=== PATIENT | male | born 1945 | race African-American/Black ===

== ENCOUNTER 2016-12-26 07:06 | Inpatient (IN) | payer OTHER ==
[2016-12-26 07:15] VITALS: BMI 18.0
[2016-12-26] MEDS ORDERED: morphine CARPU-JECT 4 MG/1 ML DISP.SYRIN IVPUSH ONE (07:44)
[2016-12-26] MEDS ORDERED: SODIUM CHLORIDE 1,000 ML IV STA (07:44)
--- NOTE | 2016-12-26 08:10 | PDOC ---
Attending Attestation - Resident Resident Name: ShaferRenu - ED Attending Attestation I have performed the following: I have examined & evaluated the patient, The case was reviewed & discussed with the resident, I agree w/resident's findings & plan, Exceptions are as noted - HPI HPI: 12/26/16 08:03 This is a 71 yo M with a history of Heroin abuse prior lower extremity ulcers Pt presents to the ER with a complaint of severe lower extremity pain Pt had lower extremity ulcers, seen at an outside hospital where he was reportedly assessed and treated with anitbiotics Pt presents to the ER due to worsening pain Pt has lower extremity swelling No fevers While en route here to the ER, he syncopized - Physicial Exam PE: 12/26/16 08:10 Lower extremity edema Lower extremity pain Several ulcerations noted - Medical Decision Making 12/26/16 08:10 Will do: Labs Duplex Head CT 12/26/16 12:59 12/26/16 12:59 Laboratory Tests 12/26/16 12/26/16 09:10 09:10 WBC 3.6 L Hgb 9.8 L Hct 29.9 L Plt Count 138 D Sodium 140 Potassium 3.1 L Chloride 100 Carbon Dioxide 33 H Anion Gap 7 L BUN 18 Creatinine 1.0 Random Glucose 87 D Will plan to admit Heart Score/ECG Review #1 ECG reviewed & interpreted by me at: 13:01 12/26/16 13:01 Twelve-lead EKG was performed and reviewed by me. There is normal sinus rhythm with a normal rate of 68 bpm. The axis is normal. The intervals are abnormal - pr:270ms, QRS:98ms, QTc:425ms. There are no ST or T wave abnormalities.
--- NOTE | 2016-12-26 08:14 | PDOC ---
History of Present Illness - General Chief Complaint: Pain, Acute Stated Complaint: pain Time Seen by Provider: 12/26/16 07:14 History Source: Patient Exam Limitations: No Limitations - History of Present Illness Initial Comments: 12/26/16 07:50 This is a 71 yo male with h/o homelessness and recurrent foot infections who presents c/o syncope today at about 6:30am in the setting of left foot infection for the past two days. He recalls that he was on the bus en route to the ED to be seen for the foot infection when he stepped off the bus, had worsened shooting pain when he stepped on the left foot, and passed out. He had no preceding symptoms (no chest pain, palpitations, or dizziness), and states that he fainted d/t the pain. He cannot recall exactly what happened, but he denies hitting his head or neck, and now denies any head/neck pain, vision troubles, new numbness or tingling, or focal weakness. Regarding the left foot pain, he notes worsening pain, redness, swelling, and warmth from the inside of the ankle radiating up to the mid-calf for the past two days. He also notes skin tears/ulcers to the inside of the left ankle. He recalls that these symptoms are the same as his prior foot infections, the last of which was on the same side two weeks ago and was treated with antibiotics from an outside ED (as outpatient). He notes SOB for the past couple of days ("due to the pain") but denies any fever, chills, nausea, vomiting, rashes, chest pain, palpitations , headache, vision changes, or other recent symptoms. Past History - Past Medical History Allergies/Adverse Reactions: Allergies Allergy/AdvReac Type Severity Reaction Status Date / Time tomato [Tomato] Allergy Unknown Rash Verified 12/26/16 07:09 No Known Drug Allergies Allergy Verified 12/26/16 07:09 Home Medications: Ambulatory Orders NK [No Known Home Medication] 12/26/16 Anemia: No Asthma: No Cancer: No Cardiac Disorders: No CVA: No COPD: No CHF: No Dementia: No Diabetes: No GI Disorders: No Disorders: No HTN: No Hypercholesterolemia: No Kidney Stones: No Liver Disease: No Suicide Attempt (Hx): No Seizures: No Thyroid Disease: No - Surgical History Abdominal Surgery: No Appendectomy: No Cardiac Surgery: No Cholecystectomy: No Lung Surgery: No Neurologic Surgery: No Orthopedic Surgery: No - Reproductive History Testicular Surgery: No - Psycho/Social/Smoking Cessation Hx Anxiety: No Suicidal Ideation: No Smoking History: Unknown if ever smoked Have you smoked in the past 12 months: Yes Number of Cigarettes Smoked Daily: 10 Cigars Per Day: 0 'Breaking Loose' booklet given: 02/11/16 Hx Alcohol Use: No Drug/Substance Use Hx: Yes Substance Use Type: Heroin Hx Substance Use Treatment: Yes Review of Systems - Review of Systems Able to Perform ROS?: Yes Is the patient limited Polish proficient: Yes Constitutional: Yes: Chills. No: Fever, Unexplained wgt Loss HEENTM: No: Nose Congestion, Throat Pain Respiratory: No: Cough, Shortness of Breath Cardiac (ROS): Yes: Syncope. No: Chest Pain, Palpitations ABD/GI: No: Constipated, Diarrhea, Nausea, Vomiting : No: Burning, Dysuria Musculoskeletal: Yes: Other (left leg pain, left foot pain). No: Back Pain, Neck Pain Integumentary: Yes: Erythema, Lesions. No: Bruising Neurological: No: Headache, Numbness, Tingling, Weakness, Dizziness Endocrine: No: Unexplained Weight Gain, Unexplained Weight Loss *Physical Exam - Vital Signs Last Vital Signs Temp Pulse Resp BP Pulse Ox 98.1 F 64 18 131/75 100 12/26/16 07:10 12/26/16 07:10 12/26/16 07:10 12/26/16 07:10 12/26/16 07:10 - Physical Exam General Appearance: Yes: Disheveled, Moderate Distress, Other (older male who is alert and answering questions appropriately but who intermittently moans in pain noting that his left foot and leg are painful). No: Apparent Distress HEENT: positive: EOMI, Normal Voice, Hearing Grossly Normal, Other (poor dentition). negative: Scleral Icterus (R), Scleral Icterus (L), Nasal Congestion Neck: positive: Trachea midline, Supple. negative: Tender, Rigid Respiratory/Chest: positive: Lungs Clear, Normal Breath Sounds. negative: Respiratory Distress, Crackles, Rhonchi, Stridor, Wheezing Cardiovascular: positive: Regular Rhythm, Regular Rate. negative: Murmur Gastrointestinal/Abdominal: positive: Normal Bowel Sounds, Soft. negative: Tender, Organomegaly, Pulsatile Mass, Guarding Musculoskeletal: positive: Decreased Range of Motion (to left ankle secondary to swelling), Other (charcot foot deformity bilaterally). negative: Vertebral Tenderness Extremity: positive: Normal Capillary Refill, Normal Inspection, Normal Range of Motion. negative: Tender, Cyanosis Integumentary: positive: Warm, Erythema (extending from base of toes to mid- calf circumferentially), Swelling (left pedal edema extending to distal leg), Other (multiple ulcerations to medial ankle without active drainage, multiple old scabbed areas to left anterior leg, no induration or fluctuance noted to LLE ). negative: Bruising Neurologic: positive: certified medical technician assistant II-XII NML intact, Fully Oriented, Alert, Normal Mood/ Affect, Normal Response, Motor Strength 5/5 Procedures - Additional Procedures Additional Procedures: other (US guided EJ line placement, left EJ, 18G catheter placed into left EJ with initial non-pulsatile dark red return of blood but subsequent inability to draw blood into syringe. Able to flush 10 cc into line without e/o infiltration, subsequently able to flush an additional 10 cc without e/o infiltration. However still unable to draw blood, d/t uncertainty of successful cannulation will ask IR if they might have time to place a line, as another option may consider CVC placement.) Heart Score/ECG Review #1 ECG reviewed & interpreted by me at: 08:00 NSR rate of 68 with 1st degree AV block, otherwise nothing acute ED Treatment Course - LABORATORY CBC & Chemistry Diagram: 12/26/16 09:10 12/26/16 09:10 - RADIOLOGY Radiology Studies Ordered: Category Date Time Status CHEST X-RAY PORTABLE* [RAD] Stat Radiology 12/26/16 07:44 Ordered DUPLEX VASCUL US-2LEGS [US] Stat Ultrasound 12/26/16 07:44 Ordered Chest X-Ray Result: Other (No acute cardiopulmonary processes) Medical Decision Making - Medical Decision Making 71 yo male with recurrent LE cellulitis, with worsening LLE infection x2 days and now an episode of syncope this AM. Pt denies preceding symptoms, denies hitting head or injuring neck, but cannot recall the actual event as he did lose consciousness. Will order CT head (this is indicated according to [place] CT-Head rule based on assumed CHI and the patient's age). Defering CT C-spine (Pt with complete absence of neck pain, no recall of mechanism for C-spine trauma, no distracting injury from fall). Noted that the patient does have pain from his LLE cellulitis, but we are not considering this a "distracting injury" from the fall. Most likely this is vasovagal syncope associated with pain from the LLE infection. Also considered on the ddx are sepsis, CHF, anemia, EKG does not suggest signs of ischemia, CXR is unremarkable. Notable that the [place] Syncope Rule scoring places this Pt at high risk for serious outcome based on his SOB and Hct<30. 12/26/16 11:22 The patient has been a difficult stick to place IV. We are opting out of IV fluids an any IV medications at this time. He has deferred CT scan of the head and states, "I'll get it another time." Doppler study BLE unremarkable, but the study did not include poplitial or any distal vessels in the LLE. Pt admitted to Med/Surg, PIV access achieved after multiple attempts. *DC/Admit/Observation/Transfer Diagnosis at time of Disposition: Cellulitis of foot, left - Discharge Dispostion Condition at time of disposition: Guarded Admit: Yes
[2016-12-26] MEDS ORDERED: OXYCODONE/APAP 5/325MG COMBO TABLET PO ONE (08:35)
[2016-12-26] MEDS ORDERED: OXYCODONE/APAP 5/325MG COMBO TABLET ONE (08:37)
[2016-12-26 09:21] LABS: BASOPHIL 0.7 % (0-2.0); EOSINOPHIL 2.4 % (0-4.5); MCH 31.7 pg (25.7-33.7); MCHC 32.9 g/dl (32.0-35.9); MEAN CELL VOLUME 96.4 fl (80-96); MEAN PLT VOLUME 8.2 fl (7.5-11.1); NEUTROPHILS 61.3 % (42.8-82.8); PLATELET COUNT 138 K/MM3 (134-434); RDW 13.3 % (11.9-15.9); WHITE BLOOD COUNT 3.6 K/mm3 (4.0-10.0)
[2016-12-26 09:44] LABS: ALBUMIN 3.1 g/dl (3.4-5.0); ALK PHOS 69 U/L (45-117); ANION GAP 7 (8-16); BILIRUBIN,TOTAL 0.8 mg/dL (0.2-1.0); CO2 33 mmol/L (21-32); GLUCOSE,RANDOM 87 mg/dL (74-106); SGOT/AST 38 U/L (15-37); SGPT/ALT 37 U/L (12-78); TOT PROT 6.9 g/dl (6.4-8.2)
--- NOTE | 2016-12-26 16:31 | EKG ---
Test Reason : Blood Pressure : / mmHG Vent. Rate : 068 BPM Atrial Rate : 068 BPM P-R Int : 270 ms QRS Dur : 098 ms QT Int : 400 ms P-R-T Axes : 055 001 052 degrees QTc Int : 425 ms POOR DATA QUALITY, INTERPRETATION MAY BE ADVERSELY AFFECTED SINUS RHYTHM WITH 1ST DEGREE A-V BLOCK INCOMPLETE RIGHT BUNDLE BRANCH BLOCK JUNCTIONAL ST DEPRESSION, PROBABLY NORMAL BORDERLINE ECG WHEN COMPARED WITH ECG OF 11-FEB-2016 23:44, PREMATURE VENTRICULAR COMPLEXES ARE NO LONGER PRESENT Confirmed by ARTURO SALCIDO MD ([id number]) on 12/26/2016 4:31:38 PM Referred By: Confirmed By:ARTURO SALCIDO MD
[2016-12-26] MEDS ORDERED: morphine CARPU-JECT 2 MG/1 ML DISP.SYRIN ONE (17:01)
[2016-12-26] MEDS ORDERED: morphine CARPU-JECT 4 MG/1 ML DISP.SYRIN ONE (17:01)
[2016-12-26 19:37] VITALS: PULSE 69
[2016-12-26] MEDS ORDERED: DEXTROSE 5%-0.45% SALINE 1,000 ML IV SCH (20:45)
[2016-12-26] MEDS: CEFAZOLIN (PRE-DOCKED) 50 ML IVPB SCH (22:29)
[2016-12-26] MEDS ORDERED: morphine CARPU-JECT 2 MG/1 ML DISP.SYRIN IVPUSH ONE (22:30)
[2016-12-27] MEDS: CEFAZOLIN (PRE-DOCKED) 50 ML IVPB SCH ×2 (01:56→10:10)
[2016-12-27] MEDS: morphine CARPU-JECT 2 MG/1 ML DISP.SYRIN IVPUSH PRN ×2 (06:17→11:49)
--- NOTE | 2016-12-27 11:20 | HP ---
Admitting History and Physical - Smoking History Smoking history: Current every day smoker Have you smoked in the past 12 months: Yes Aproximately how many cigarettes per day: 7 - Alcohol/Substance Use Hx Alcohol Use: No Home Medications - Allergies Allergies/Adverse Reactions: Allergies Allergy/AdvReac Type Severity Reaction Status Date / Time tomato [Tomato] Allergy Unknown Rash Verified 12/26/16 07:09 No Known Drug Allergies Allergy Verified 12/26/16 07:09 - Home Medications Home Medications: Ambulatory Orders NK [No Known Home Medication] 12/26/16 Family Disease History - Family Disease History Family Disease History: Heart Disease: Mother ( at age 52), CA: Brother, Respiratory: Grandparent (asthma Hx. Grandmother), Other: Father () Physical Examination Vital Signs: Vital Signs Temperature 97.7 F 12/26/16 18:41 Pulse Rate 69 12/26/16 18:41 Respiratory Rate 20 12/26/16 18:41 Blood Pressure 136/78 12/26/16 18:41 O2 Sat by Pulse Oximetry (%) 99 12/26/16 16:42
[2016-12-27 11:43] VITALS: BP 146/76; TEMP 98.9
--- NOTE | 2016-12-27 15:43 | CONSULT ---
Consult Consult Specialty:: infectious diseases Referred by:: Reason for Consultation:: cellulitits of the left leg - History of Present Illness Chief Complaint: pain and swelling of the left leg History of Present Illness: 71 yo male with h/o homelessness and recurrent foot infections who presents c/o syncope today at about 6:30am in the setting of left foot infection for the past two days. According to the patient he does not care of himself and also he snorts heroin patient denies he does any iv drugs,occasionally smokes.. left foot pain, he notes worsening pain, redness, swelling, and warmth from the inside of the ankle radiating up to the mid-calf for the past two days. He also notes skin tears/ulcers to the inside of the left ankle. He recalls that these symptoms are the same as his prior foot infections, the last of which was on the same side two weeks ago and was treated with antibiotics patient currently has no specific complaints denies nausea ,vomiting.fever - History Source History Provided By: Patient, Medical Record Limitations to Obtaining History: Poor Historian - Alcohol/Substance Use Hx Alcohol Use: No - Smoking History Smoking history: Current every day smoker Have you smoked in the past 12 months: Yes Aproximately how many cigarettes per day: 7 Home Medications - Allergies Allergies/Adverse Reactions: Allergies Allergy/AdvReac Type Severity Reaction Status Date / Time tomato [Tomato] Allergy Unknown Rash Verified 12/26/16 07:09 No Known Drug Allergies Allergy Verified 12/26/16 07:09 - Home Medications Home Medications: Ambulatory Orders NK [No Known Home Medication] 12/26/16 Family Disease History - Family Disease History Family Disease History: Heart Disease: Mother ( at age 52), CA: Brother, Respiratory: Grandparent (asthma Hx. Grandmother), Other: Father () Review of Systems - Review of Systems Constitutional: reports: No Symptoms Eyes: reports: No Symptoms HENT: reports: No Symptoms Neck: reports: No Symptoms Cardiovascular: reports: No Symptoms Respiratory: reports: No Symptoms Gastrointestinal: reports: No Symptoms Genitourinary: reports: No Symptoms Musculoskeletal: reports: Muscle Pain, Other Integumentary: reports: Erythema, Wound Neurological: reports: No Symptoms Endocrine: reports: No Symptoms Hematology/Lymphatic: reports: No Symptoms Psychiatric: reports: No Symptoms Physical Exam Vital Signs: Vital Signs Temperature 98.9 F 12/27/16 10:00 Pulse Rate 69 12/27/16 10:00 Respiratory Rate 20 12/27/16 10:00 Blood Pressure 146/76 12/27/16 10:00 O2 Sat by Pulse Oximetry (%) 95 12/27/16 09:00 Constitutional: Yes: Mild Distress, Thin, Other Eyes: Yes: Conjunctiva Clear Cardiovascular: Yes: Regular Rate and Rhythm Respiratory: Yes: Regular, CTA Bilaterally Gastrointestinal: Yes: Normal Bowel Sounds, Soft Musculoskeletal: Yes: Other Extremities: Yes: Other Neurological: Yes: Alert, Oriented Psychiatric: Yes: Alert Imaging - Results Chest X-ray: Report Reviewed, Image Reviewed Assessment/Plan patient who is homeless and uses drugs coming to the hospital because of left leg cellulitis patient with multiple medical problems cellulitis of the l foot onchomycosis erythema of the foot unkept appearance drug abuse plan soak the feet podiatry for his toe nails will start vanco and zosyn elevation of the legs rest as per primary team
[2016-12-27] MEDS ORDERED: morphine CARPU-JECT 4 MG/1 ML DISP.SYRIN IVPUSH PRN (15:55)
[2016-12-27] MEDS ORDERED: VANCOMYCIN 1,250 MG in DEXTROSE 5%-WATER - 250 ML IVPB SCH (17:00)
== END 2016-12-27 16:28 | disposition left against medical advice (07) | DRG 603 ==
LOC: JER 07:06 → JERBED 13:13 → J5S 17:14
PROVIDERS: ADMIT Internal Medicine; ATTEND Internal Medicine
DX: L03.116 Cellulitis of left lower limb (principal); L97.829 Non-pressure chronic ulcer of other part of left lower leg with unspecified severity; F17.210 Nicotine dependence, cigarettes, uncomplicated; F11.10 Opioid abuse, uncomplicated; B35.1 Tinea unguium; Z59.0 Homelessness; R55 Syncope and collapse
CPT/HCPCS: 36415; 71010-TC; 80053; 83605; 85025; 87040; 87070; 87186; 87205; 93005; 93010; 93970-TC; 99285-25

== ENCOUNTER 2017-01-07 06:06 | Inpatient (IN) | payer OTHER ==
[2017-01-07 06:35] VITALS: BMI 17.9
--- NOTE | 2017-01-07 06:38 | PDOC ---
History of Present Illness - General Stated Complaint: LEG INFECTION Time Seen by Provider: 01/07/17 06:13 - History of Present Illness Initial Comments: 01/07/17 06:37 Mr. Magallon is a 71 year old male with a significant past medical history of heroin abuse and cellulitis who presents to the emergency department with severe pain and open weeping sores in each lower extremity bilaterally. 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 Furthermore, he was in a hospital in [place] yesterday but left when he says he was going to go into withdrawal so left AMA to go home and snort heroin. He says he was given an antibiotic prescription but never filled it. He also says he has had some shortness of breath for the last 24 hours. The patient denies chest pain, headache and dizziness. Denies fever, chills, nausea, vomit, diarrhea and constipation. Denies dysuria, frequency, urgency and hematuria. Allergies: tomatoes Past surgical history: denies Social history: heroin abuse and tobacco (approx. 5 cigarettes / day) PMD - none 01/07/17 07:15 Past History - Past Medical History Allergies/Adverse Reactions: Allergies Allergy/AdvReac Type Severity Reaction Status Date / Time tomato [Tomato] Allergy Unknown Rash Verified 12/26/16 07:09 No Known Drug Allergies Allergy Verified 12/26/16 07:09 Home Medications: Ambulatory Orders NK [No Known Home Medication] 12/26/16 Anemia: No Asthma: No Cancer: No Cardiac Disorders: No CVA: No COPD: No CHF: No Dementia: No Diabetes: No GI Disorders: No Disorders: No HTN: No Hypercholesterolemia: No Kidney Stones: No Liver Disease: No Suicide Attempt (Hx): No Seizures: No Thyroid Disease: No - Surgical History Abdominal Surgery: No Appendectomy: No Cardiac Surgery: No Cholecystectomy: No Lung Surgery: No Neurologic Surgery: No Orthopedic Surgery: No - Reproductive History Testicular Surgery: No - Psycho/Social/Smoking Cessation Hx Anxiety: No Suicidal Ideation: No Smoking History: Current every day smoker Have you smoked in the past 12 months: Yes Number of Cigarettes Smoked Daily: 5 Cigars Per Day: 0 Information on smoking cessation initiated: No 'Breaking Loose' booklet given: 12/26/16 Hx Alcohol Use: No Drug/Substance Use Hx: Yes Substance Use Type: Heroin Hx Substance Use Treatment: Yes Review of Systems - Review of Systems Comments:: 01/07/17 06:37 GENERAL/CONSTITUTIONAL: No fever or chills. No weakness. HEAD, EYES, EARS, NOSE AND THROAT: No change in vision. No ear pain or discharge. No sore throat. CARDIOVASCULAR: +mild SOB endorsed for the last 24 hours. No chest pain. RESPIRATORY: No cough, wheezing, or hemoptysis. GASTROINTESTINAL: No nausea, vomiting, diarrhea or constipation. GENITOURINARY: No dysuria, frequency, or change in urination. MUSCULOSKELETAL: +Bilateral leg pain No joint or muscle swelling or pain. No neck or back pain. SKIN: No rash NEUROLOGIC: No headache, vertigo, loss of consciousness, or change in strength/ sensation. ENDOCRINE: No increased thirst. No abnormal weight change HEMATOLOGIC/LYMPHATIC: No anemia, easy bleeding, or history of blood clots. ALLERGIC/IMMUNOLOGIC: No hives or skin allergy. 01/07/17 06:58 01/07/17 07:16 *Physical Exam - Vital Signs Last Vital Signs Temp Pulse Resp BP Pulse Ox 98.1 F 69 16 128/79 98 01/07/17 06:21 01/07/17 06:21 01/07/17 06:21 01/07/17 06:21 01/07/17 06:21 - Physical Exam Comments: 01/07/17 06:37 GENERAL: Awake, alert, and fully oriented, in no acute distress HEAD: No signs of trauma, normocephalic, atraumatic EYES: PERRLA, EOMI, sclera anicteric, conjunctiva clear ENT: Auricles normal inspection, hearing grossly normal, nares patent, oropharynx clear without exudates. Moist mucosa NECK: Normal ROM, supple, no lymphadenopathy, JVD, or masses LUNGS: No distress, speaks full sentences, clear to auscultation bilaterally HEART: Regular rate and rhythm, normal S1 and S2, no murmurs, rubs or gallops, peripheral pulses normal and equal bilaterally. ABDOMEN: Soft, nontender, normoactive bowel sounds. No guarding, no rebound. No masses EXTREMITIES: +Bilateral lower extremities swollen with venous stasis ulcers throughout. Normal range of motion, no edema. No clubbing or cyanosis. NEUROLOGICAL: Cranial nerves II through XII grossly intact. Normal speech, normal gait, no focal sensorimotor deficits SKIN: Warm, Dry, normal turgor, no rashes or lesions noted. 01/07/17 06:55 01/07/17 07:16 Medical Decision Making - Medical Decision Making 01/07/17 07:17 Mr. Naun SINGH after he was having excessive pain to his lower legs bilaterally. Workup begun and patient signed out at shift change to Dr. Guerrero. *DC/Admit/Observation/Transfer Diagnosis at time of Disposition: Cellulitis of leg, left, Cellulitis of right lower extremity - Attestations Physician Attestion: 01/07/17 07:18 I, Dr. Chalo Ortiz, attest that this document has been prepared under my direction and personally reviewed by me in its entirety. I further attest, that it accurately reflects all work, treatment, procedures and medical decision -making performed by me.
--- NOTE | 2017-01-07 06:42 | PDOC ---
Attending Attestation - Resident Resident Name: Chalo Ortiz - ED Attending Attestation I have performed the following: I have examined & evaluated the patient, The case was reviewed & discussed with the resident, I agree w/resident's findings & plan, Exceptions are as noted - HPI HPI: 01/07/17 06:38 Agree with the resident's HPI as documented in the electronic medical record. - Physicial Exam PE: 01/07/17 06:39 Agree with the resident's physical examination as documented in the electronic medical record. - Medical Decision Making 01/07/17 06:39 71 y/o male with h/o polysubstance abuse abuse and recurrent LE infections presents to the ED with c/o bilateral foot pain; the patient was admitted to [facility] on 12/26-12/27 with LE cellulitis but he walked out b/c he states that he wanted treatment for detox. DDx includes but is not limited to: cellulitis, sepsis, PVD. Plan: 1. Labs 2. IV abx 3. Pain management 4. Observe and re-brandy;uate 5. The patient will be endorsed to the next ED team pending results of studies.
[2017-01-07] MEDS ORDERED: WATER IVPB ONE (06:52)
[2017-01-07] MEDS ORDERED: SODIUM CHLORIDE 1,000 ML IV STA (06:52)
[2017-01-07] MEDS ORDERED: CLINDAMYCIN IVPB ONE (06:52)
[2017-01-07] MEDS ORDERED: KETOROLAC TROMETHAMINE 30 MG/1 ML VIAL IVPUSH ONE (06:52)
[2017-01-07] MEDS ORDERED: DEXTROSE 5% IVPB ONE (06:52)
[2017-01-07] MEDS ORDERED: KETOROLAC TROMETHAMINE 30 MG/1 ML VIAL ONE (07:14)
[2017-01-07 08:02] LABS: BASOPHIL 0.5 % (0-2.0); EOSINOPHIL 4.5 % (0-4.5); MEAN PLT VOLUME 8.4 fl (7.5-11.1); NEUTROPHILS 59.1 % (42.8-82.8); PLATELET COUNT 259 K/MM3 (134-434); RDW 13.1 % (11.9-15.9); WHITE BLOOD COUNT 4.9 K/mm3 (4.0-10.0)
[2017-01-07 08:19] LABS: ANION GAP 5 (8-16); CALCIUM 8.2 mg/dL (8.5-10.1); CO2 32 mmol/L (21-32); CREATININE 1.1 mg/dL (0.7-1.3); GLUCOSE,RANDOM 76 mg/dL (74-106); TOT PROT 7.4 g/dl (6.4-8.2)
[2017-01-07 08:28] LABS: ALK PHOS 75 U/L (45-117); SGPT/ALT 26 U/L (12-78)
[2017-01-07 08:29] LABS: SGOT/AST 47 U/L (15-37)
--- NOTE | 2017-01-07 12:14 | PDOC ---
*Physical Exam - Vital Signs Last Vital Signs Temp Pulse Resp BP Pulse Ox 98.1 F 69 16 128/79 98 01/07/17 06:21 01/07/17 06:21 01/07/17 06:21 01/07/17 06:21 01/07/17 06:21 - Physical Exam General Appearance: Yes: Appropriately Dressed, Disheveled, Mild Distress, Thin Extremity: negative: Normal Inspection (b/l acute on chronic feet cellulitis exquisitely tender.) ED Treatment Course - LABORATORY CBC & Chemistry Diagram: 01/07/17 07:09 01/07/17 07:09 - ADDITIONAL ORDERS Additional order review: Laboratory Results 01/07/17 07:09 Sodium 140 Potassium 3.8 D Chloride 103 Carbon Dioxide 32 Anion Gap 5 L BUN 18 Creatinine 1.1 Creat Clearance w eGFR > 60 Random Glucose 76 Calcium 8.2 L Total Bilirubin 1.0 D AST 47 H D ALT 26 D Alkaline Phosphatase 75 Total Protein 7.4 Albumin 3.0 L 01/07/17 07:09 RBC 3.54 L MCV 97.0 H MCHC 33.0 RDW 13.1 MPV 8.4 Neutrophils % 59.1 Lymphocytes % 23.3 Monocytes % 12.6 H Eosinophils % 4.5 D Basophils % 0.5 Medical Decision Making - Medical Decision Making 01/07/17 11:57 71M with pmh with "polysubstance abuse abuse and recurrent LE infections presents to the ED with c/o bilateral foot pain; the patient was admitted to [facility] on 12/26-12/27 with LE cellulitis but he walked out b/c he states that he wanted treatment for detox. DDx includes but is not limited to: cellulitis, sepsis, PVD. Plan: 1. Labs 2. IV abx 3. Pain management 4. Observe and re-brandy;uate 5. The patient will be endorsed to the next ED team pending results of studies. " Patient sleeping, feet are in intractable pain, can't walk .obtained labs but difficult stick. Attempting U/S guided peripheral venous iv. Goal is to provide IV Clindamycin and admit patient. U/S guided iv failed, patient cursing and combative. 01/07/17 12:24 01/07/17 17:53 Admitting PA here and accepted patient on PO antibiotics after witnessing impossibility to place IV on patient. *DC/Admit/Observation/Transfer Diagnosis at time of Disposition: Cellulitis of leg, right, Cellulitis of leg, left - Discharge Dispostion Admit: Yes - Transfer to Acute Care Facility Accepting Physician:: Toshia Glynn
--- NOTE | 2017-01-07 12:17 | EKG ---
Test Reason : Blood Pressure : / mmHG Vent. Rate : 066 BPM Atrial Rate : 066 BPM P-R Int : 256 ms QRS Dur : 122 ms QT Int : 414 ms P-R-T Axes : 065 032 062 degrees QTc Int : 434 ms SINUS RHYTHM WITH 1ST DEGREE A-V BLOCK RIGHT BUNDLE BRANCH BLOCK ABNORMAL ECG WHEN COMPARED WITH ECG OF 26-DEC-2016 07:56, NO SIGNIFICANT CHANGE WAS FOUND Confirmed by YONY CUEVAS MD ([id number]) on 01/07/2017 12:17:03 PM Referred By: Confirmed By:YONY CUEVAS MD
[2017-01-07] MEDS ORDERED: morphine CARPU-JECT 2 MG/1 ML DISP.SYRIN IM ONE ×2 (12:29→17:44)
[2017-01-07] MEDS ORDERED: morphine CARPU-JECT 4 MG/1 ML DISP.SYRIN ONE ×2 (12:30→18:58)
[2017-01-07] MEDS ORDERED: LIDOCAINE HCL/PF 1% SDV 5ML VIAL ONE (16:48)
[2017-01-07] MEDS ORDERED: CLINDAMYCIN HCL 300 MG CAPSULE PO ONE (17:49)
--- NOTE | 2017-01-07 18:14 | HP ---
CHIEF COMPLAINT: "My legs are swollen and I need detox." PCP: None- will need on discharge HISTORY OF PRESENT ILLNESS: This is a 71 yo man with PMH IV heroin use and recurrent cellulitis who presents today with swelling and erythema to bilateral lower extremities worsening over past 2-3 days. He states the swelling and pain have progressed to where he can no longer ambulate. Pt was admitted to [facility] on for same c/o and left AMA prior to treatment. He reports fevers, chills and nausea starting today. His last heroin use was earlier today but he does not remember at what time. ER course was notable for: (1) PO clindamycin Recent Travel: denies PAST MEDICAL HISTORY: recurrent cellulitis PAST SURGICAL HISTORY: denies Social History: Smokin-4 cigarettes daily Alcohol: denies Drugs: $50 intranasal heroin daily Lives in homeless half-way in [place] Family History: Allergies tomato [Tomato] Allergy (Unknown, Verified 12/26/16 07:09) Rash No Known Drug Allergies Allergy (Verified 12/26/16 07:09) NO DRUG ALLERGIES/GRZEGORZ PIEDRA CHECKED W PT. HOME MEDICATIONS: Home Medications Medication Instructions Recorded NK [No Known Home Medication] 12/26/16 REVIEW OF SYSTEMS CONSTITUTIONAL: Present- fever, chills Absent: diaphoresis, generalized weakness, malaise, loss of appetite, weight change HEENT: Absent: rhinorrhea, nasal congestion, throat pain, throat swelling, difficulty swallowing, mouth swelling, ear pain, eye pain, visual changes CARDIOVASCULAR: Absent: chest pain, syncope, palpitations, irregular heart rate, lightheadedness , peripheral edema RESPIRATORY: Present- shortness of breath Absent: cough, dyspnea with exertion, orthopnea, wheezing, stridor, hemoptysis GASTROINTESTINAL: Present- nausea Absent: abdominal pain, abdominal distension, vomiting, diarrhea, constipation, melena, hematochezia GENITOURINARY: Absent: dysuria, frequency, urgency, hesitancy, hematuria, flank pain, genital pain MUSCULOSKELETAL: Present- arthralgia Absent: myalgia, joint swelling, back pain, neck pain SKIN: Present- erythema to BLE Absent: rash, itching, pallor HEMATOLOGIC/IMMUNOLOGIC: Absent: easy bleeding, easy bruising, lymphadenopathy, frequent infections ENDOCRINE: Absent: unexplained weight gain, unexplained weight loss, heat intolerance, cold intolerance NEUROLOGIC: Absent: headache, focal weakness or paresthesias, dizziness, unsteady gait, seizure, mental status changes, bladder or bowel incontinence PSYCHIATRIC: Absent: anxiety, depression, suicidal or homicidal ideation, hallucinations. PHYSICAL EXAMINATION Vital Signs - 24 hr 3 01/07/17 06:21 Temperature 98.1 F Pulse Rate 69 Respiratory 16 Rate Blood Pressure 128/79 O2 Sat by Pulse 98 Oximetry (%) GENERAL: Awake, alert, and fully oriented, in no acute distress. HEAD: Normal with no signs of trauma. EYES: Pupils equal, round and reactive to light, extraocular movements intact, sclera anicteric, conjunctiva clear. No lid lag. EARS, NOSE, THROAT: Ears normal, nares patent, oropharynx clear without exudates. Moist mucous membranes. NECK: Normal range of motion, supple without lymphadenopathy, JVD, or masses. LUNGS: Breath sounds equal, clear to auscultation bilaterally. No wheezes, and no crackles. No accessory muscle use. HEART: Regular rate and rhythm, normal S1 and S2 without murmur, rub or gallop. ABDOMEN: Soft, nontender, not distended, normoactive bowel sounds, no guarding, no rebound, no masses. No hepatomegaly or splenomegaly. MUSCULOSKELETAL: Normal range of motion at all joints. No bony deformities or tenderness. No CVA tenderness. UPPER EXTREMITIES: 2+ pulses, warm, well-perfused. No cyanosis. No clubbing. No peripheral edema. LOWER EXTREMITIES: 2+ pulses, warm, well-perfused. No calf tenderness. 3+ pitting peripheral edema. +DP/PT pulses NEUROLOGICAL: Cranial nerves II-XII intact. Normal speech. Gait not tested as pt refused. PSYCHIATRIC: Uncooperative. Poor eye contact. Demanding and using foul and abusive language. SKIN: Warm, dry, normal turgor, no rashes or lesions noted, normal capillary refill. BLE erythematous and shiny. Laboratory Results - last 24 hr 3 01/07/17 01/07/17 07:09 07:09 WBC 4.9 D RBC 3.54 L Hgb 11.3 L D Hct 34.3 L MCV 97.0 H MCH 32.0 MCHC 33.0 RDW 13.1 Plt Count 259 D MPV 8.4 Neutrophils % 59.1 Lymphocytes % 23.3 Monocytes % 12.6 H Eosinophils % 4.5 D Basophils % 0.5 Sodium 140 Potassium 3.8 D Chloride 103 Carbon Dioxide 32 Anion Gap 5 L BUN 18 Creatinine 1.1 Creat Clearance w eGFR > 60 Random Glucose 76 Calcium 8.2 L Total Bilirubin 1.0 D AST 47 H D ALT 26 D Alkaline Phosphatase 75 Total Protein 7.4 Albumin 3.0 L ASSESSMENT/PLAN: A: 71 yo man with PMH IVDA with recurrent cellulitis. Unable to obtain IV access after multiple attempts. Patient refusing additional attempts at this time. COWS -6 P: 1. Cellulitis - unable to obtain IV access - will start PO clinda 600 tid until IV access established - ?IR for midline catheter in AM - ID consult - blood cx - CBC, CMP - duplex doppler 2. Opiate dependance with withdrawal - methadone taper - valium prn - Hugh consult - serial COWS 3. F/E/N - Regular diet - replete prn 4. PPX - lovenox Dispo- requires inpatient treatment of his acute medical conditions Visit type - Emergency Visit Emergency Visit: Yes Care time: The patient presented to the Emergency Department on the above date and was hospitalized for further evaluation of their emergent condition. - New Patient This patient is new to me today: Yes Date on this admission: 01/07/17 - Critical Care Critical Care patient: No
[2017-01-07] MEDS ORDERED: METHADONE HCL 10 MG TABLET PO ONE ×2 (18:19→23:00)
[2017-01-07] MEDS ORDERED: diazePAM 5 MG TABLET PO PRN (18:19)
[2017-01-07] MEDS ORDERED: METHADONE HCL 10 MG TABLET ONE (18:59)
[2017-01-07] MEDS ORDERED: CLINDAMYCIN HCL 150 MG CAPSULE (FP) ONE (18:59)
[2017-01-07] MEDS: CLINDAMYCIN HCL 150 MG CAPSULE (FP) PO SCH (22:36)
[2017-01-08] MEDS: CLINDAMYCIN HCL 150 MG CAPSULE (FP) PO SCH ×3 (06:17→21:32)
[2017-01-08] MEDS ORDERED: METHADONE HCL 10 MG TABLET PO ONE (10:00)
[2017-01-08] MEDS: ENOXAPARIN NA (PORCINE) 40 MG/0.4 ML DISP.SYRIN SQ SCH (10:01)
[2017-01-08] MEDS ORDERED: traMADol HCL 50 MG TABLET PO PRN (12:46)
[2017-01-08] MEDS ORDERED: IBUPROFEN 600 MG TABLET (FP) PO PRN (13:30)
--- NOTE | 2017-01-08 13:40 | CONSULT ---
Consult Consult Specialty:: infectious diseases Reason for Consultation:: bilateral cellulitits of the legs - History of Present Illness Chief Complaint: pain swelling of the leg History of Present Illness: this patient who had signed out ama last time when he was admitted for the same problem of cellulitis of the legs,comes abck with pain and swelling of both legs and inability to walk patient never got treated before has a history of drug abuse in the hospital currently patient has been started on clinda and was never given iv medications because iv access was not available patient currently complaining of severe pain in the legs denies fever,but says that he cannot keep any weight on the legs Mr. Magallon is a 71 year old male with a significant past medical history of heroin abuse it seems patient was in [facility] recently and signed out ama it seems to go and snot cocaine - History Source History Provided By: Patient Limitations to Obtaining History: No Limitations - Alcohol/Substance Use Hx Alcohol Use: No - Smoking History Smoking history: Current every day smoker Have you smoked in the past 12 months: Yes Aproximately how many cigarettes per day: 5 Home Medications - Allergies Allergies/Adverse Reactions: Allergies Allergy/AdvReac Type Severity Reaction Status Date / Time tomato [Tomato] Allergy Unknown Rash Verified 12/26/16 07:09 No Known Drug Allergies Allergy Verified 12/26/16 07:09 - Home Medications Home Medications: Ambulatory Orders NK [No Known Home Medication] 12/26/16 Family Disease History - Family Disease History Family Disease History: Heart Disease: Mother ( at age 52), CA: Brother, Respiratory: Grandparent (asthma Hx. Grandmother), Other: Father () Review of Systems - Review of Systems Constitutional: reports: No Symptoms Eyes: reports: No Symptoms HENT: reports: No Symptoms Neck: reports: No Symptoms Cardiovascular: reports: No Symptoms Respiratory: reports: No Symptoms Gastrointestinal: reports: No Symptoms Musculoskeletal: reports: Extremity Pain, Muscle Pain Integumentary: reports: Erythema, Wound Neurological: reports: No Symptoms Endocrine: reports: No Symptoms Hematology/Lymphatic: reports: No Symptoms Psychiatric: reports: No Symptoms Physical Exam Vital Signs: Vital Signs Temperature 98.8 F 01/07/17 23:00 Pulse Rate 79 01/07/17 23:00 Respiratory Rate 16 01/07/17 23:00 Blood Pressure 144/94 01/07/17 23:00 O2 Sat by Pulse Oximetry (%) 96 01/07/17 23:00 Constitutional: Yes: Calm, Mild Distress Neck: Yes: Supple Cardiovascular: Yes: Regular Rate and Rhythm Respiratory: Yes: Regular, CTA Bilaterally Gastrointestinal: Yes: Normal Bowel Sounds, Soft Musculoskeletal: Yes: Other Extremities: Yes: Erythema, Other Integumentary: Yes: Erythema Neurological: Yes: Alert, Oriented Imaging - Results Chest X-ray: Report Reviewed, Image Reviewed Assessment/Plan bilateral cellulitits of the legs drug abuse patient ideally needs iv abx no iv access at the moment plan continue clinda added augmentin if patient does not show signis of improvement patient will need a central line and iv abx
--- NOTE | 2017-01-08 15:56 | CONSULT ---
Consult Detox [facility] Reason for Current Admission/Consult: Heroin detox Referred by:: Joni Valderrama Res - History History of Present Illness: 71 y/o man with a long hx. of heroin dependence is admitted with cellulitis. Pt. is known to us from previous detoxes.Pt. is currently on the methadone taper detox pprotocol. - Alcohol/Substance Use Hx Alcohol Use: No Hx Substance Use: Yes Hx Substance Use Treatment: Yes (Detox) - Current Drug/Alcohol Use Heroin Route: Inhalation Frequency: Daily Amount used: 12 to 13 bags Age of first use: 19
[2017-01-08] MEDS: AMOX TR/POT CLAV 875MG/125MG TABLETS (FP) PO SCH (17:37)
--- NOTE | 2017-01-08 20:01 | PN ---
Physical Exam: SUBJECTIVE: Patient seen and examined at bedside. Complaining of full body pain and severe pain to the right foot. OBJECTIVE: Vital Signs Period Temp Pulse Resp BP Sys/Garcia Pulse Ox Last 24 Hr 98.7 F-98.8 F 60-79 16-16 144-178/85-94 96-98 GENERAL: The patient is awake, alert, and fully oriented, in no acute distress. Thin. Poor hygiene. Edentulous. HEAD: Normal with no signs of trauma. EYES: PERRL, extraocular movements intact, sclera anicteric, conjunctiva clear. No ptosis. LUNGS: Breath sounds equal, clear to auscultation bilaterally, no wheezes, no crackles, no accessory muscle use. HEART: Regular rate and rhythm, S1, S2 without murmur, rub or gallop. ABDOMEN: Soft, nontender, nondistended, normoactive bowel sounds, no guarding, no rebound UPPER EXTREMITIES: 2+ pulses, warm, well-perfused LOWER EXTREMITIES: Bilateral pedal edema, venous stasis ulcers; no erythema, no pus or exudate, no odor NEUROLOGICAL: Cranial nerves II through XII grossly intact. Normal speech, gait not observed. Active Medications Generic Name Dose Route Start Last Admin Trade Name Freq PRN Reason Stop Dose Admin Acetaminophen 650 mg 01/08/17 13:30 Tylenol - PO Q6H PRN FEVER OR PAIN Amoxicillin/Clavulanate Potassium 1 tab 01/08/17 17:30 01/08/17 17:37 Augmentin - 875mg Tablet PO Not Given BID@0800,1730 [facility] Clindamycin HCl 600 mg 01/07/17 22:00 01/08/17 15:30 Cleocin - PO 600 mg TID [facility] Administration Diazepam 10 mg 01/07/17 18:19 Valium - PO 01/10/17 18:18 Q4H PRN WITHDRAWAL(CONT SUBST) Enoxaparin Sodium 40 mg 01/08/17 10:00 01/08/17 10:01 Lovenox - SQ Not Given DAILY [facility] Ibuprofen 600 mg 01/08/17 13:30 Motrin - PO Q6H PRN FEVER Methadone HCl 10 mg 01/11/17 10:00 Dolophine - PO 01/11/17 10:01 ONCE ONE Methadone HCl 15 mg 01/09/17 10:00 Dolophine - PO 01/09/17 10:01 ONCE ONE Methadone HCl 15 mg 01/10/17 10:00 Dolophine - PO 01/10/17 10:01 ONCE ONE Methadone HCl 5 mg 01/12/17 06:00 Dolophine - PO 01/12/17 06:01 ONCE@0600 ONE ASSESSMENT/PLAN 71 year-old homeless male, lives in a [place] [facility], with chronic lower extremity edema and venous stasis wounds. Current heroin abuser. Bilateral lower extremity venous stasis --chronic condition, does not seek regular medical care --afebrile, no leukocytosis --started empirically on clindamycin PO, ID added augmentin today --vascular consult pending Current heroin use Heroin withdrawal --methadone taper F/E/N Fluids: POI intake adequate Electrolytes: replete as indicated Nutrition: regular diet DVT prophylaxis: lovenox Dispo: continues to require inpatient care. Discussed detox placement with Cane FeederMgr Serrano. Full code. Visit type - Emergency Visit Emergency Visit: Yes ED Registration Date: 01/07/17 Care time: The patient presented to the Emergency Department on the above date and was hospitalized for further evaluation of their emergent condition. - New Patient This patient is new to me today: Yes Date on this admission: 01/08/17 - Critical Care Critical Care patient: No
--- NOTE | 2017-01-08 20:25 | CONSULT ---
Consult - Alcohol/Substance Use Hx Alcohol Use: No - Smoking History Smoking history: Current every day smoker Have you smoked in the past 12 months: Yes Aproximately how many cigarettes per day: 5 Home Medications - Allergies Allergies/Adverse Reactions: Allergies Allergy/AdvReac Type Severity Reaction Status Date / Time tomato [Tomato] Allergy Unknown Rash Verified 12/26/16 07:09 No Known Drug Allergies Allergy Verified 12/26/16 07:09 - Home Medications Home Medications: Ambulatory Orders NK [No Known Home Medication] 12/26/16 Family Disease History - Family Disease History Family Disease History: Heart Disease: Mother ( at age 52), CA: Brother, Respiratory: Grandparent (asthma Hx. Grandmother), Other: Father () Physical Exam Vital Signs: Vital Signs Temperature 98.8 F 01/07/17 23:00 Pulse Rate 79 01/07/17 23:00 Respiratory Rate 16 01/07/17 23:00 Blood Pressure 144/94 01/07/17 23:00 O2 Sat by Pulse Oximetry (%) 96 01/07/17 23:00 Assessment/Plan VAscular Surgery Mr. Magallon is a 71 year old male with a significant past medical history of heroin abuse and cellulitis who presents to the emergency department with severe pain and open weeping sores in each lower extremity bilaterally. 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 Furthermore, he was in a hospital in [place] yesterday but left when he says he was going to go into withdrawal so left AMA to go home and snort heroin. He says he was given an antibiotic prescription but never filled it. He also says he has had some shortness of breath for the last 24 hours. The patient denies chest pain, headache and dizziness. Denies fever, chills, nausea, vomit, diarrhea and constipation. Denies dysuria, frequency, urgency and hematuria. Allergies: tomatoes Past surgical history: denies Social history: heroin abuse and tobacco (approx. 5 cigarettes / day) PMD - none 01/07/17 07:15 Past History - Past Medical History Allergies/Adverse Reactions: Allergies Allergy/AdvReac Type Severity Reaction Status Date / Time tomato [Tomato] Allergy Unknown Rash Verified 12/26/16 07:09 No Known Drug Allergies Allergy Verified 12/26/16 07:09 Home Medications: Ambulatory Orders NK [No Known Home Medication] 12/26/16 PE Head - NC/At Lung - CTA Heart - RRR abd - soft,nt,nd ext - Bl lower ext venous stasis . Weeping wound of left lower ext. Both legs are warm. Pt having a lot of pain out of proportion to exam. A/P Bilateral lower ext venous stasis - ulcers with weeping of left lower ext. 1. compression with del to both legs. 2. For left lower ext can place slivadene to area. 3. Rehab for drug abuse. 4. leg elevation. Edward Rodriguez DO
[2017-01-08] MEDS: SILVER SULFADIAZINE 1% TOP CREAM 50 GM JAR TP SCH (21:32)
[2017-01-08] MEDS: ACETAMINOPHEN 325 MG TABLET (FP) PO PRN (21:32)
[2017-01-09 03:12] LABS: URINE MARIJUANA THC NEGATIVE ng/ml (CUTOFF=50)
[2017-01-09] MEDS: CLINDAMYCIN HCL 150 MG CAPSULE (FP) PO SCH ×3 (06:10→21:05)
[2017-01-09] MEDS: AMOX TR/POT CLAV 875MG/125MG TABLETS (FP) PO SCH ×2 (08:37→17:42)
[2017-01-09] MEDS ORDERED: PT OWN MED DRAWER 7, Y5N ONE (09:19)
[2017-01-09] MEDS: SILVER SULFADIAZINE 1% TOP CREAM 50 GM JAR TP SCH (09:22)
[2017-01-09] MEDS: ENOXAPARIN NA (PORCINE) 40 MG/0.4 ML DISP.SYRIN SQ SCH ×2 (09:22→09:28)
--- NOTE | 2017-01-09 09:51 | PN ---
Physical Exam: SUBJECTIVE: Patient seen and examined complaining of bilateral leg pain. Has been refusing lab draws, refusing to go to xray. OBJECTIVE: Vital Signs Period Temp Pulse Resp BP Sys/Garcia Pulse Ox Last 24 Hr 99.3 F-101.0 F 73-81 16-18 154-161/83-89 96 GENERAL: The patient is awake, alert, and fully oriented, in no acute distress. Thin. Poor hygiene. Edentulous. HEAD: Normal with no signs of trauma. EYES: PERRL, extraocular movements intact, sclera anicteric, conjunctiva clear. No ptosis. LUNGS: Breath sounds equal, clear to auscultation bilaterally, no wheezes, no crackles, no accessory muscle use. HEART: Regular rate and rhythm, S1, S2 without murmur, rub or gallop. ABDOMEN: Soft, nontender, nondistended, normoactive bowel sounds, no guarding, no rebound UPPER EXTREMITIES: 2+ pulses, warm, well-perfused LOWER EXTREMITIES: Bilateral pedal edema, venous stasis ulcers; no erythema, no pus or exudate, no odor NEUROLOGICAL: Cranial nerves II through XII grossly intact. Normal speech, gait not observed. Laboratory Results - last 24 hr 01/08/17 01:15 Opiates Screen Positive Methadone Screen Negative Barbiturate Screen Negative Phencyclidine Screen Negative Ur Amphetamines Screen Negative MDMA (Ecstasy) Screen Negative Benzodiazepines Screen Negative Cocaine Screen Negative U Marijuana (THC) Screen Negative Active Medications Generic Name Dose Route Start Last Admin Trade Name Freq PRN Reason Stop Dose Admin Acetaminophen 650 mg 01/08/17 13:30 01/08/17 21:32 Tylenol - PO 650 mg Q6H PRN Administration FEVER OR PAIN Amoxicillin/Clavulanate Potassium 1 tab 01/08/17 17:30 01/09/17 08:37 Augmentin - 875mg Tablet PO 1 tab BID@0800,1730 [facility] Administration Clindamycin HCl 600 mg 01/07/17 22:00 01/09/17 06:10 Cleocin - PO 600 mg TID [facility] Administration Diazepam 10 mg 01/07/17 18:19 Valium - PO 01/10/17 18:18 Q4H PRN WITHDRAWAL(CONT SUBST) Enoxaparin Sodium 40 mg 01/08/17 10:00 01/09/17 09:28 Lovenox - SQ Not Given DAILY [facility] Ibuprofen 600 mg 01/08/17 13:30 Motrin - PO Q6H PRN FEVER Methadone HCl 10 mg 01/11/17 10:00 Dolophine - PO 01/11/17 10:01 ONCE ONE Methadone HCl 15 mg 01/09/17 10:00 01/09/17 09:22 Dolophine - PO 01/09/17 10:01 15 mg ONCE ONE Administration Methadone HCl 15 mg 01/10/17 10:00 Dolophine - PO 01/10/17 10:01 ONCE ONE Methadone HCl 5 mg 01/12/17 06:00 Dolophine - PO 01/12/17 06:01 ONCE@0600 ONE Silver Sulfadiazine 1 applic 01/08/17 20:30 01/09/17 09:22 Silvadene - TP 1 applic DAILY [facility] Administration ASSESSMENT/PLAN 71 year-old homeless male, lives in a detention, with chronic lower extremity edema and venous stasis wounds. Current heroin abuser. Bilateral lower extremity venous stasis Bilateral lower extremity venous stasis ulcers --chronic condition, does not seek regular medical care --xray feet and ankles ordered to r/o osteo, patient presently refusing to go --afebrile, no leukocytosis --fever to 101, cultures collected and sent --continue empiric clinda PO and augmentin --vascular consult: medical management, silvadene to wounds Current heroin use Heroin withdrawal --methadone taper F/E/N Fluids: PO intake adequate Electrolytes: replete as indicated Nutrition: regular diet DVT prophylaxis: lovenox Dispo: continues to require inpatient care. Discussed detox placement with Manager Android Maggie. Full code. Visit type - Emergency Visit Emergency Visit: Yes ED Registration Date: 01/07/17 Care time: The patient presented to the Emergency Department on the above date and was hospitalized for further evaluation of their emergent condition. - New Patient This patient is new to me today: No - Critical Care Critical Care patient: No
[2017-01-09] MEDS ORDERED: METHADONE HCL 5 MG TABLET PO ONE (10:00)
[2017-01-09 11:07] LABS: ALBUMIN 2.7 g/dl (3.4-5.0); ALK PHOS 60 U/L (45-117); ANION GAP 6 (8-16); CALCIUM 7.9 mg/dL (8.5-10.1); CO2 31 mmol/L (21-32); CREATININE 1.1 mg/dL (0.7-1.3); GLUCOSE,RANDOM 69 mg/dL (74-106); SGOT/AST 40 U/L (15-37); SGPT/ALT 27 U/L (12-78); TOT PROT 6.8 g/dl (6.4-8.2)
--- NOTE | 2017-01-09 13:50 | PN ---
Progress Note, Physician History of Present Illness: bilateral leg pain patient has been refusing everything spiked a fever - Current Medication List Current Medications: Active Medications Acetaminophen (Tylenol -) 650 mg PO Q6H PRN PRN Reason: FEVER OR PAIN Last Admin: 01/08/17 21:32 Dose: 650 mg Amoxicillin/Clavulanate Potassium (Augmentin - 875mg Tablet) 1 tab PO BID@0800, 1730 [facility] Last Admin: 01/09/17 08:37 Dose: 1 tab Clindamycin HCl (Cleocin -) 600 mg PO TID [facility] Last Admin: 01/09/17 06:10 Dose: 600 mg Diazepam (Valium -) 10 mg PO Q4H PRN PRN Reason: WITHDRAWAL(CONT SUBST) Stop: 01/10/17 18:18 Enoxaparin Sodium (Lovenox -) 40 mg SQ DAILY [facility] Last Admin: 01/09/17 09:28 Dose: Not Given Ibuprofen (Motrin -) 600 mg PO Q6H PRN PRN Reason: FEVER Methadone HCl (Dolophine -) 10 mg PO ONCE ONE Stop: 01/11/17 10:01 Methadone HCl (Dolophine -) 15 mg PO ONCE ONE Stop: 01/10/17 10:01 Methadone HCl (Dolophine -) 5 mg PO ONCE@0600 ONE Stop: 01/12/17 06:01 Silver Sulfadiazine (Silvadene -) 1 applic TP DAILY [facility] Last Admin: 01/09/17 09:22 Dose: 1 applic - Objective Vital Signs: Vital Signs Temperature 99.8 F H 01/09/17 09:30 Pulse Rate 71 01/09/17 09:30 Respiratory Rate 18 01/09/17 09:30 Blood Pressure 146/87 01/09/17 09:30 O2 Sat by Pulse Oximetry (%) 95 01/09/17 10:00 Constitutional: Yes: Mild Distress Cardiovascular: Yes: Regular Rate and Rhythm Gastrointestinal: Yes: Normal Bowel Sounds, Soft Musculoskeletal: Yes: Other Extremities: Yes: Other Integumentary: Yes: Erythema, Other Neurological: Yes: Alert, Oriented Psychiatric: Yes: Alert Labs: CBC, BMP 01/09/17 10:20 Assessment/Plan bilateral cellulitits of the legs drug abuse patient ideally needs iv abx no iv access at the moment plan continue current abx if patient spikes any fever have to be given iv abx i think we should place a central line give iv abx and once better switch to oral wound care rest as per primary team
[2017-01-09] MEDS: ACETAMINOPHEN 325 MG TABLET (FP) PO PRN (14:05)
[2017-01-09 19:15] LABS: URINE APPEARANCE CLEAR; URINE BILIRUBIN NEGATIVE (NEGATIVE); URINE BLOOD NEGATIVE (NEGATIVE); URINE COLOR DKYELLOW; URINE GLUCOSE (UA) NEGATIVE (NEGATIVE); URINE KETONE TRACE (NEGATIVE); URINE NITRITE NEGATIVE (NEGATIVE); URINE PROTEIN NEGATIVE (NEGATIVE); URINE UROBILINOGEN 4.0 E.U/dl mg/dL (0.2-1.0)
[2017-01-09 19:31] LABS: URINE LEUK ESTERASE 1+ (NEGATIVE)
[2017-01-09 19:34] LABS: URINE MUCUS RARE; URINE RBC 2 /hpf (0-3); URINE WBC 7 /hpf (3-5)
[2017-01-10] MEDS: CLINDAMYCIN HCL 150 MG CAPSULE (FP) PO SCH ×4 (07:38→22:05)
--- NOTE | 2017-01-10 07:47 | PN ---
Physical Exam: SUBJECTIVE: Patient seen and examined OBJECTIVE: Vital Signs Period Temp Pulse Resp BP Sys/Garcia Pulse Ox Last 24 Hr 99.8 F-100.0 F 71-75 18-18 144-146/86-87 95 GENERAL: The patient is awake, alert, and fully oriented, in no acute distress. Thin, frail. HEAD: Normal with no signs of trauma. EYES: PERRL, extraocular movements intact, sclera anicteric, conjunctiva clear. No ptosis. LUNGS: Breath sounds equal, clear to auscultation bilaterally, no wheezes, no crackles, no accessory muscle use. HEART: Regular rate and rhythm, S1, S2 without murmur, rub or gallop. ABDOMEN: Mildly distended, EXTREMITIES: 2+ pulses, warm, well-perfused, no edema. NEUROLOGICAL: Cranial nerves II through XII grossly intact. Normal speech, gait not observed. Laboratory Results - last 24 hr 01/09/17 01/09/17 10:20 17:50 Sodium 135 L Potassium 3.6 Chloride 98 Carbon Dioxide 31 Anion Gap 6 L BUN 19 H Creatinine 1.1 Creat Clearance w eGFR > 60 Random Glucose 69 L Calcium 7.9 L Magnesium 2.0 Total Bilirubin 1.0 AST 40 H ALT 27 Alkaline Phosphatase 60 Total Protein 6.8 Albumin 2.7 L Urine Color Dkyellow Urine Appearance Clear Urine pH 6.0 Ur Specific [place] 1.025 Urine Protein Negative Urine Glucose (UA) Negative Urine Ketones Trace H Urine Blood Negative Urine Nitrite Negative Urine Bilirubin Negative Urine Urobilinogen 4.0 e.u/dl Ur Leukocyte Esterase 1+ H Urine RBC 2 Urine WBC 7 Ur Epithelial Cells Rare Urine Mucus Rare Active Medications Generic Name Dose Route Start Last Admin Trade Name Freq PRN Reason Stop Dose Admin Acetaminophen 650 mg 01/08/17 13:30 01/09/17 14:05 Tylenol - PO 650 mg Q6H PRN Administration FEVER OR PAIN Amoxicillin/Clavulanate Potassium 1 tab 01/08/17 17:30 01/09/17 17:42 Augmentin - 875mg Tablet PO 1 tab BID@0800,1730 KOLE Administration Clindamycin HCl 600 mg 01/07/17 22:00 01/10/17 07:38 Cleocin - PO Not Given TID KOLE Diazepam 10 mg 01/07/17 18:19 Valium - PO 01/10/17 18:18 Q4H PRN WITHDRAWAL(CONT SUBST) Enoxaparin Sodium 40 mg 01/08/17 10:00 01/09/17 09:28 Lovenox - SQ Not Given DAILY KOLE Ibuprofen 600 mg 01/08/17 13:30 Motrin - PO Q6H PRN FEVER Methadone HCl 10 mg 01/11/17 10:00 Dolophine - PO 01/11/17 10:01 ONCE ONE Methadone HCl 15 mg 01/10/17 10:00 Dolophine - PO 01/10/17 10:01 ONCE ONE Methadone HCl 5 mg 01/12/17 06:00 Dolophine - PO 01/12/17 06:01 ONCE@0600 ONE Silver Sulfadiazine 1 applic 01/08/17 20:30 01/09/17 09:22 Silvadene - TP 1 applic DAILY KOLE Administration ASSESSMENT/PLAN 85 year-old female with a PMH significant for HTN, 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 Admitted for symptomatic anemia, bilateral pleural effusions, ascites, and bilateral lower extremity edema. Acute on chronic diastolic heart failure --12/26/16 Echo: LV function low normal, no RWMA; RV normal; LAE; trace TR; trace AI; trace PI --bilateral pleural effusions on imaging --severe bilateral lower extremity edema on admission, much improved after aggressive diuresis, down 17 lbs in 48 hours --BNP >8,000 --renal function remains stable, continue IV Lasix, r/o pneumonia --afebrile, no leukocytosis --unlikely this is clinical pneumonia --observe off antibiotics Myelofibrosis Essential thrombocytopenia MALT lymphoma Anemia --hydroxyurea restarted --Hgb 7.0 today; discussed with Dr. Jameson, hold transfusion for now due iron overload in liver and possibly heart; repeat cbc 6:00pm --keep type and cross current Portal vein thrombus --mild ascites --continue lovenox at loser dose Splenic infarcts --seen on CT imaging --possible emboli from portal vein thrombus --heme would like to start ASA but patient states she has allergy and does not want to risk an allergic reaction Atrial fibrillation --rate well-controlled, continue sotalol --continue full dose lovenox Victorino's thyroiditis --TSH high, free T4 wnl GERD --continue zantac BID T12 compression fracture --lidocaine patch FEN Fluids: PO intake adequate Electrolytes: replete as indicated Nutrition: sodium-controlled diet DVT prophylaxis: on full dose lovenox Dispo: Continues to require inpatient care. Full Code.
[2017-01-10] MEDS: AMOX TR/POT CLAV 875MG/125MG TABLETS (FP) PO SCH ×2 (08:20→17:06)
[2017-01-10] MEDS ORDERED: METHADONE HCL 5 MG TABLET PO ONE (10:00)
[2017-01-10] MEDS: ENOXAPARIN NA (PORCINE) 40 MG/0.4 ML DISP.SYRIN SQ SCH (10:54)
--- NOTE | 2017-01-10 12:58 | PN ---
Physical Exam: SUBJECTIVE: Patient seen and examined at bedside. Refused blood draw again today. Refused dressing change. OBJECTIVE: Vital Signs Period Temp Pulse Resp BP Sys/Garcia Pulse Ox Last 24 Hr 99.1 F-100.0 F 63-75 18-18 143-144/86-89 GENERAL: The patient is awake, alert, and fully oriented, in no acute distress. Thin. Poor hygiene. Edentulous. HEAD: Normal with no signs of trauma. EYES: PERRL, extraocular movements intact, sclera anicteric, conjunctiva clear. No ptosis. LUNGS: Breath sounds equal, clear to auscultation bilaterally, no wheezes, no crackles, no accessory muscle use. HEART: Regular rate and rhythm, S1, S2 without murmur, rub or gallop. ABDOMEN: Soft, nontender, nondistended, normoactive bowel sounds, no guarding, no rebound UPPER EXTREMITIES: 2+ pulses, warm, well-perfused LOWER EXTREMITIES: Bilateral pedal edema, venous stasis ulcers; no erythema, no pus or exudate, no odor NEUROLOGICAL: Cranial nerves II through XII grossly intact. Normal speech, gait not observed. Laboratory Results - last 24 hr 01/09/17 17:50 Urine Color Dkyellow Urine Appearance Clear Urine pH 6.0 Ur Specific [place] 1.025 Urine Protein Negative Urine Glucose (UA) Negative Urine Ketones Trace H Urine Blood Negative Urine Nitrite Negative Urine Bilirubin Negative Urine Urobilinogen 4.0 e.u/dl Ur Leukocyte Esterase 1+ H Urine RBC 2 Urine WBC 7 Ur Epithelial Cells Rare Urine Mucus Rare Active Medications Generic Name Dose Route Start Last Admin Trade Name Harshalq PRN Reason Stop Dose Admin Acetaminophen 650 mg 01/08/17 13:30 01/09/17 14:05 Tylenol - PO 650 mg Q6H PRN Administration FEVER OR PAIN Amoxicillin/Clavulanate Potassium 1 tab 01/08/17 17:30 01/10/17 08:20 Augmentin - 875mg Tablet PO 1 tab BID@0800,1730 KOLE Administration Clindamycin HCl 600 mg 01/07/17 22:00 01/10/17 08:20 Cleocin - PO 600 mg TID KOLE Administration Diazepam 10 mg 01/07/17 18:19 Valium - PO 01/10/17 18:18 Q4H PRN WITHDRAWAL(CONT SUBST) Enoxaparin Sodium 40 mg 01/08/17 10:00 01/10/17 10:54 Lovenox - SQ Not Given DAILY KOLE Ibuprofen 600 mg 01/08/17 13:30 Motrin - PO Q6H PRN FEVER Methadone HCl 10 mg 01/11/17 10:00 Dolophine - PO 01/11/17 10:01 ONCE ONE Methadone HCl 5 mg 01/12/17 06:00 Dolophine - PO 01/12/17 06:01 ONCE@0600 ONE Silver Sulfadiazine 1 applic 01/08/17 20:30 01/09/17 09:22 Silvadene - TP 1 applic DAILY [facility] Administration ASSESSMENT/PLAN 71 year-old homeless male, lives in a longterm, with chronic lower extremity edema and venous stasis wounds. Current heroin abuser. Bilateral lower extremity venous stasis Bilateral lower extremity venous stasis ulcers --chronic condition, does not seek regular medical care --xray feet and ankles, no evidence of osteo --afebrile, no leukocytosis --afebrile 24 hours ever to 101, cultures NGTD --continue empiric clinda PO and augmentin --vascular consult: medical management, silvadene to wounds Current heroin use Heroin withdrawal --methadone taper last dose 01/12 F/E/N Fluids: PO intake adequate Electrolytes: replete as indicated Nutrition: regular diet DVT prophylaxis: lovenox PT evaluation Dispo: continues to require inpatient care. Discussed detox placement with Vending Mechanic Maggie. Full code. Visit type - Emergency Visit Emergency Visit: Yes ED Registration Date: 01/07/17 Care time: The patient presented to the Emergency Department on the above date and was hospitalized for further evaluation of their emergent condition. - New Patient This patient is new to me today: No - Critical Care Critical Care patient: No
[2017-01-10] MEDS: SILVER SULFADIAZINE 1% TOP CREAM 50 GM JAR TP SCH (13:58)
--- NOTE | 2017-01-10 16:43 | PN ---
Progress Note, Physician History of Present Illness: bilateral leg pain no new issues patient thinks leg has improved wound care being done low grade temp - Current Medication List Current Medications: Active Medications Acetaminophen (Tylenol -) 650 mg PO Q6H PRN PRN Reason: FEVER OR PAIN Last Admin: 01/09/17 14:05 Dose: 650 mg Amoxicillin/Clavulanate Potassium (Augmentin - 875mg Tablet) 1 tab PO BID@0800, 1730 [facility] Last Admin: 01/10/17 08:20 Dose: 1 tab Clindamycin HCl (Cleocin -) 600 mg PO TID [facility] Last Admin: 01/10/17 13:57 Dose: 600 mg Diazepam (Valium -) 10 mg PO Q4H PRN PRN Reason: WITHDRAWAL(CONT SUBST) Stop: 01/10/17 18:18 Enoxaparin Sodium (Lovenox -) 40 mg SQ DAILY [facility] Last Admin: 01/10/17 10:54 Dose: Not Given Ibuprofen (Motrin -) 600 mg PO Q6H PRN PRN Reason: FEVER Methadone HCl (Dolophine -) 10 mg PO ONCE ONE Stop: 01/11/17 10:01 Methadone HCl (Dolophine -) 5 mg PO ONCE@0600 ONE Stop: 01/12/17 06:01 Silver Sulfadiazine (Silvadene -) 1 applic TP DAILY [facility] Last Admin: 01/10/17 13:58 Dose: 1 applic - Objective Vital Signs: Vital Signs Temperature 98.3 F 01/10/17 13:46 Pulse Rate 80 01/10/17 13:46 Respiratory Rate 18 01/10/17 13:46 Blood Pressure 128/78 01/10/17 13:46 O2 Sat by Pulse Oximetry (%) 95 01/09/17 10:00 Constitutional: Yes: No Distress, Calm Cardiovascular: Yes: Regular Rate and Rhythm Respiratory: Yes: Regular, CTA Bilaterally Gastrointestinal: Yes: Normal Bowel Sounds, Soft Musculoskeletal: Yes: Other Extremities: Yes: Other Integumentary: Yes: Other Wound/Incision: Yes: Dressing Dry and Intact Neurological: Yes: Alert, Oriented Psychiatric: Yes: Alert, Oriented Labs: CBC, BMP 01/09/17 10:20 Assessment/Plan bilateral cellulitits of the legs drug abuse patient ideally needs iv abx no iv access at the moment plan continue current abx wound care rest as per primary elevation of the legs
[2017-01-11 07:00] VITALS: TEMP 97.9
[2017-01-11] MEDS: AMOX TR/POT CLAV 875MG/125MG TABLETS (FP) PO SCH (09:12)
[2017-01-11] MEDS: ACETAMINOPHEN 325 MG TABLET (FP) PO PRN (09:12)
[2017-01-11] MEDS: SILVER SULFADIAZINE 1% TOP CREAM 50 GM JAR TP SCH ×2 (09:13→11:22)
[2017-01-11] MEDS: ENOXAPARIN NA (PORCINE) 40 MG/0.4 ML DISP.SYRIN SQ SCH (09:13)
[2017-01-11] MEDS ORDERED: METHADONE HCL 10 MG TABLET PO ONE (10:00)
--- NOTE | 2017-01-11 11:22 | DS ---
Physical Exam: SUBJECTIVE: Patient seen and examined OBJECTIVE: Vital Signs Period Temp Pulse Resp BP Sys/Garcia Pulse Ox Last 24 Hr 97.9 F-98.4 F 53-80 18-18 128-139/78-82 PHYSICAL EXAM GENERAL: The patient is awake, alert, and fully oriented, in no acute distress. HEAD: Normal with no signs of trauma. EYES: PERRL, extraocular movements intact, sclera anicteric, conjunctiva clear. ENT: Ears normal, nares patent, oropharynx clear without exudates, moist mucous membranes. NECK: Trachea midline, full range of motion, supple. LUNGS: Breath sounds equal, clear to auscultation bilaterally, no wheezes, no crackles, no accessory muscle use. HEART: Regular rate and rhythm, S1, S2 without murmur, rub or gallop. ABDOMEN: Soft, nontender, nondistended, normoactive bowel sounds, no guarding, no rebound, no hepatosplenomegaly, no masses. EXTREMITIES: 2+ pulses, warm, well-perfused, no edema. NEUROLOGICAL: Cranial nerves II through XII grossly intact. Normal speech, gait not observed. PSYCH: Normal mood, normal affect. SKIN: Warm, dry, normal turgor, no rashes or lesions noted. LABS HOSPITAL COURSE: Date of Admission:01/07/17 Date of Discharge: 01/11/17 Discharge Summary Reason For Visit: CELLULITIS OF LEFT AND RIGHT LOWER EXTREMITY Current Active Problems Cellulitis of leg, left (Acute) Cellulitis of leg, right (Acute) - Instructions Diet, Activity, Other Instructions: Two prescriptions have been sent to your pharmacy for antibiotics. Take these medications as directed and be sure to finish all the medication. You should follow up at the [facility] at [facility], The contact information is enclosed, call for an appointment. Return to the emergency department for any new or worsening symptoms. Referrals: Edward Rodriguez MD [Staff Physician] - 1 Week (Call to make an appointment) - Home Medications Comprehensive Discharge Medication List: Ambulatory Orders Amox-Tr/K Cl [Augmentin 875-125mg Tablet -] 1 tab PO BID@0800,1730 #14 tablet Clindamycin [Cleocin -] 600 mg PO TID #21 tab 01/11/17
[2017-01-11 11:45] VITALS: BP 131/82; PULSE 59
[2017-01-12] MEDS ORDERED: METHADONE HCL 5 MG TABLET PO ONE (06:00)
== END 2017-01-11 11:40 | disposition home or self-care (01) | DRG 603 ==
LOC: JER 06:06 → JERBED 17:56 → J5S 21:39 → J8W 01-10 18:01
PROVIDERS: ADMIT Internal Medicine; ATTEND Nurse Practitioner Acute Care
DX: L03.116 Cellulitis of left lower limb (principal); F11.23 Opioid dependence with withdrawal; L03.115 Cellulitis of right lower limb; I73.89 Other specified peripheral vascular diseases; F17.210 Nicotine dependence, cigarettes, uncomplicated; I83.009 Varicose veins of unspecified lower extremity with ulcer of unspecified site; Z59.0 Homelessness
CPT/HCPCS: 36415; 71010-TC; 73610-TC-LT; 73610-TC-RT; 73630-TC-LT; 73630-TC-RT; 80053; 80307; 81003; 81015; 83735; 85025; 87040; 87081; 93005; 93010; 97116-GP; 97161-GP; 99284-25

== ENCOUNTER 2017-01-30 10:30 | Inpatient (IN) | payer OTHER ==
[2017-01-30 11:09] VITALS: BMI 18.8
--- NOTE | 2017-01-30 14:11 | HP ---
COWS - Scale Resting Pulse: 1= [place] 81-100 Sweatin=Flushed/Facial Moisture Restless Observation: 1= Difficult to Sit Still Pupil Size: 0= Normal to Room Light Bone or Joint Aches: 2= Severe Diffuse Aches Runny Nose/ Eye Tearin= Nasal Congestion GI Upset > 30mins: 2= Nausea/Diarrhea Tremor Observation: 2= Slight Tremor Visible Yawning Observation: 2= >3x During Session Anxiety or Irritability: 2=Irritable/Anxious Goose Flesh Skin: 3=Piloerection COWS Score: 18 Admission ROS S - HPI Chief Complaint: I am here for detox. Allergies/Adverse Reactions: Allergies Allergy/AdvReac Type Severity Reaction Status Date / Time tomato [Tomato] Allergy Unknown Rash Verified 01/30/17 13:46 No Known Drug Allergies Allergy Verified 01/30/17 13:46 History of Present Illness: pt is a 71yr old male with a history of heroin and cocaine dependence seeking detox for treatment. Exam Limitations: Physical Impairment (chronic ulcer to both feet.) - Ebola screening Have you traveled outside of the country in the last 21 days: No Have you had contact with anyone from an Ebola affected area: No Have you been sick,other than usual withdrawal symptoms: No Do you have a fever: No - Review of Systems Constitutional: Chills, Loss of Appetite, Night Sweats EENT: reports: Nose Congestion Respiratory: reports: No Symptoms reported Cardiac: reports: No Symptoms Reported GI: reports: No Symptoms Reported : reports: No Symptoms Reported Musculoskeletal: reports: No Symptoms Reported Integumentary: reports: Flushing, Sweating, Other (ulcers to both feet) Neuro: reports: Tingling, Tremors Endocrine: reports: Excessive Sweating, Flushing, Intolerance to Cold, Intolerance to Heat Hematology: reports: No Symptoms Reported Psychiatric: reports: Judgement Intact, Mood/Affect Appropiate, Orientated x3, Agitated, Anxious Other Systems: Reviewed and Negative Patient History - Patient Medical History Hx Anemia: No Hx Asthma: No Hx Chronic Obstructive Pulmonary Disease (COPD): No Hx Cancer: No Hx Cardiac Disorders: No Hx Congestive Heart Failure: No Hx Hypertension: No Hx Hypercholesterolemia: No Hx Pacemaker: No HX Cerebrovascular Accident: No Hx Seizures: No Hx Dementia: No Hx Diabetes: No Hx Gastrointestinal Disorders: No Hx Liver Disease: No Hx Genitourinary Disorders: No Hx Sexually Transmitted Disorders: No Hx Renal Disease (ESRD): No Hx Thyroid Disease: No Hx Human Immunodeficiency Virus (HIV): No (negative) Hx Hepatitis C: No (negative) Hx Depression: No Hx Suicide Attempt: No (denies) Hx Bipolar Disorder: No Hx Schizophrenia: No Other Medical History: chronic ulcers to both feet - Patient Surgical History Past Surgical History: No Hx Neurologic Surgery: No Hx Cataract Extraction: No Hx Cardiac Surgery: No Hx Lung Surgery: No Hx Breast Surgery: No Hx Breast Biopsy: No Hx Abdominal Surgery: No Hx Appendectomy: No Hx Cholecystectomy: No Hx Genitourinary Surgery: No Hx Section: No Hx Orthopedic Surgery: No Hx Hysterectomy: No Other Surgical History: surgery for hemorroids Anesthesia Reaction: No - PPD History Previous Implant?: Yes Documented Results: Negative w/o proof Implanted On Prior [facility] Admission?: Yes PPD to be Administered?: No - Reproductive History Patient is a Female of Child Bearing Age (11 -55 yrs old): Yes - Smoking Cessation Smoking history: Current every day smoker Have you smoked in the past 12 months: Yes Aproximately how many cigarettes per day: 7 Cigars Per Day: 0 Hx Chewing Tobacco Use: No Initiated information on smoking cessation: Yes 'Breaking Loose' booklet given: 01/30/17 - Substance & Tx. History Hx Alcohol Use: No Hx Substance Use: Yes Substance Use Type: Heroin Hx Substance Use Treatment: Yes (last detox ) - Substances Abused Heroin Route: Inhalation Frequency: Daily Amount used: 5-7 bags Age of first use: 19 Date of Last Use: 01/29/17 Family Disease History - Family Disease History Family Disease History: Heart Disease: Mother ( at age 52), CA: Brother, Respiratory: Grandparent (asthma Hx. Grandmother), Other: Father () Admission Physical Exam [facility] - Vital Signs Vital Signs: Vital Signs - 24 hr 01/30/17 11:06 Temperature 97.6 F Pulse Rate 83 Respiratory 18 Rate Blood Pressure 153/96 - Physical General Appearance: Yes: Disheveled, Moderate Distress, Thin, Tremorous, Irritable, Sweating, Anxious HEENTM: Yes: Normal Voice, Nasal Congestion, Rhinorrhea Respiratory: Yes: Lungs Clear, Normal Breath Sounds, No Respiratory Distress Neck: Yes: Within Normal Limits Breast: Yes: Within Normal Limits Cardiology: Yes: Regular Rhythm, Regular Rate, S1, S2 Abdominal: Yes: Normal Bowel Sounds, Non Tender, Soft Genitourinary: Yes: Within Normal Limits Back: Yes: Normal Inspection Musculoskeletal: Yes: Back pain Extremities: Yes: Normal Capillary Refill, Normal Inspection, Tremors Neurological: Yes: Fully Oriented, Alert, Normal Response Integumentary: Yes: Diaphoresis, Other (ulcers to both feet) Lymphatic: Yes: Within Normal Limits - Diagnostic (1) Nicotine dependence Current Visit: Yes Status: Chronic Qualifiers: Nicotine product type: cigarettes Substance use status: uncomplicated Qualified Code(s): F17.210 - Nicotine dependence, cigarettes, uncomplicated (2) Opioid dependence with withdrawal Current Visit: Yes Status: Chronic (3) Weight loss Current Visit: Yes Status: Chronic (4) Dry skin Current Visit: Yes Status: Chronic (5) Skin ulcers of both feet Current Visit: Yes Status: Chronic Cleared for Admission [facility] - Detox or Rehab [facility] Level of Care: Medically Managed Detox Regimen/Protocol: Methadone S Breath Alcohol Content Breath Alcohol Content: 0 Urine Drug Screen - Results Drug Screen Negative: No Urine Drug Screen Results: LATA-Cocaine, OPI-Opiates, MTD-Methadone, OXY- Oxycodone
[2017-01-30] MEDS ORDERED: P-EPHED 60MG/TRIPROLIDI 2.5MG TABLET PO PRN (14:22)
[2017-01-30] MEDS ORDERED: MAG HYDROX/AL HYDROX/SIMETH 30 ML UNIT-DOSE CUP PO PRN (14:22)
[2017-01-30] MEDS ORDERED: diazePAM 5 MG TABLET PO PRN (14:22)
[2017-01-30] MEDS ORDERED: ACETAMINOPHEN 325 MG TABLET (FP) PO PRN (14:22)
[2017-01-30] MEDS ORDERED: IBUPROFEN 400 MG TABLET (FP) PO PRN (14:22)
[2017-01-30] MEDS ORDERED: guaiFENesin/D-METHORPHAN HB 10 ML UNIT-DOSE CUPS PO PRN (14:22)
[2017-01-30] MEDS ORDERED: LOPERAMIDE HCL 2 MG CAPSULE PO PRN (14:22)
[2017-01-30] MEDS ORDERED: hydrOXYzine PAMOATE 50 MG CAPSULE (FP) PO PRN (14:22)
[2017-01-30] MEDS ORDERED: MAGNESIUM CITRATE 300 ML BOTTLE PO PRN (14:22)
[2017-01-30] MEDS ORDERED: MAGNESIUM HYDROX 2400MG/30ML ORAL SUSPENSION 30 ML CUP PO PRN (14:22)
[2017-01-30] MEDS ORDERED: MENTHOL/PHENOL 1 EACH UD MM PRN (14:22)
[2017-01-30] MEDS ORDERED: diphenhydrAMINE HCL 50 MG CAPSULE PO PRN (14:22)
[2017-01-30] MEDS ORDERED: METHADONE HCL 10 MG TABLET (FOR DETOX USE ONLY) PO ONE ×2 (15:00→23:00)
[2017-01-30 17:03] LABS: BASOPHIL 0.5 % (0-2.0); EOSINOPHIL 4.8 % (0-4.5); MCH 32.3 pg (25.7-33.7); MCHC 33.4 g/dl (32.0-35.9); MEAN CELL VOLUME 96.9 fl (80-96); MEAN PLT VOLUME 9.5 fl (7.5-11.1); PLATELET COUNT 202 K/MM3 (134-434); RDW 14.4 % (11.9-15.9); WHITE BLOOD COUNT 4.6 K/mm3 (4.0-10.0)
[2017-01-30 17:12] LABS: URINE APPEARANCE CLEAR; URINE BILIRUBIN NEGATIVE (NEGATIVE); URINE BLOOD NEGATIVE (NEGATIVE); URINE COLOR YELLOW; URINE GLUCOSE (UA) NEGATIVE (NEGATIVE); URINE KETONE NEGATIVE (NEGATIVE); URINE LEUK ESTERASE NEGATIVE (NEGATIVE); URINE NITRITE NEGATIVE (NEGATIVE); URINE PROTEIN NEGATIVE (NEGATIVE); URINE UROBILINOGEN NEGATIVE mg/dL (0.2-1.0)
[2017-01-30 17:18] LABS: ALBUMIN 3.3 g/dl (3.4-5.0); ANION GAP 5 (8-16); CALCIUM 8.6 mg/dL (8.5-10.1); CO2 32 mmol/L (21-32); GLUCOSE,RANDOM 88 mg/dL (74-106)
[2017-01-30 17:22] LABS: ALK PHOS 72 U/L (45-117); BILIRUBIN,TOTAL 0.6 mg/dL (0.2-1.0); SGOT/AST 43 U/L (15-37); SGPT/ALT 36 U/L (12-78); TOT PROT 8.2 g/dl (6.4-8.2)
[2017-01-30] MEDS: SILVER SULFADIAZINE 1% TOP CREAM 50 GM JAR TP SCH ×2 (23:10→23:33)
[2017-01-30] MEDS: THIAMINE HCL 100 MG TABLET (FP) PO SCH ×2 (23:10→23:35)
[2017-01-31] MEDS ORDERED: METHADONE HCL 10 MG TABLET (FOR DETOX USE ONLY) PO ONE (10:00)
[2017-01-31] MEDS: PRENATAL VITAMINS W/ FOLIC ACID TABLET (FP) PO SCH (11:09)
[2017-01-31] MEDS: NICOTINE 14 MG/24 HOURS TOPICAL PATCH TD SCH (11:09)
[2017-01-31] MEDS: SILVER SULFADIAZINE 1% TOP CREAM 50 GM JAR TP SCH ×2 (11:10→23:11)
--- NOTE | 2017-01-31 11:54 | PN ---
[facility] CIWA - CIWA Score Nausea/Vomitin-No Nausea/No Vomiting Muscle Tremors: 4-Moderate,w/Arms Extend Anxiety: 4-Mod. Anxious/Guarded Agitation: 3 Paroxysmal Sweats: 1-Minimal Palms Moist Orientation: 0-Oriented Tacttile Disturbances: 3-Moderate Itch/Numb/Burn Auditory Disturbances: 0-None Visual Disturbances: 0-None Headache: 0-None Present CIWA-Ar Total Score: 15 [facility] COWS - Scale Resting Pulse: 0= [place] 80 or Below Sweatin= Chills/Flushing Restless Observation: 3= Extraneous Movement Pupil Size: 2= Moderately Dilated Bone or Joint Aches: 4=Acute Joint/Muscle Pain Runny Nose/ Eye Tearin= Nasal Congestion GI Upset > 30mins: 0= None Tremor Observation of Outstretched Hands: 1= Tremor [place], Not Seen Yawning Observation: 2= >3x During Session Anxiety or Irritability: 2=Irritable/Anxious Goose Flesh Skin: 0=Smooth Skin COWS Score: 16 [facility] Progress Note (SOAP) Subjective: ANXIETY,SWEATS/CHILLS,LOWER EXTREMITIES DISCOMFORT--RE;CHRONIC LEG ULCERS. Objective: 01/31/17 11:53 Vital Signs Temperature 97.9 F 01/31/17 10:28 Pulse Rate 56 L 01/31/17 10:28 Respiratory Rate 18 01/31/17 10:28 Blood Pressure 117/63 01/31/17 10:28 O2 Sat by Pulse Oximetry (%) Laboratory Last Values WBC 4.6 K/mm3 (4.0-10.0) 01/30/17 14:00 RBC 2.73 M/mm3 (4.00-5.60) L D 01/30/17 14:00 Hgb 8.8 GM/dL (11.7-16.9) L D 01/30/17 14:00 Hct 26.4 % (35.4-49) L D 01/30/17 14:00 MCV 96.9 fl (80-96) H 01/30/17 14:00 MCH 32.3 pg (25.7-33.7) 01/30/17 14:00 MCHC 33.4 g/dl (32.0-35.9) 01/30/17 14:00 RDW 14.4 % (11.9-15.9) 01/30/17 14:00 Plt Count 202 K/MM3 (134-434) D 01/30/17 14:00 MPV 9.5 fl (7.5-11.1) D 01/30/17 14:00 Neutrophils % 66.0 % (42.8-82.8) 01/30/17 14:00 Lymphocytes % 18.1 % (8-40) D 01/30/17 14:00 Monocytes % 10.6 % (3.8-10.2) H 01/30/17 14:00 Eosinophils % 4.8 % (0-4.5) H 01/30/17 14:00 Basophils % 0.5 % (0-2.0) 01/30/17 14:00 Sodium 140 mmol/L (136-145) 01/30/17 14:00 Potassium 3.8 mmol/L (3.5-5.1) 01/30/17 14:00 Chloride 103 mmol/L (98-107) 01/30/17 14:00 Carbon Dioxide 32 mmol/L (21-32) 01/30/17 14:00 Anion Gap 5 (8-16) L 01/30/17 14:00 BUN 25 mg/dL (7-18) H D 01/30/17 14:00 Creatinine 1.0 mg/dL (0.7-1.3) 01/30/17 14:00 Creat Clearance w eGFR > 60 (>60) 01/30/17 14:00 Random Glucose 88 mg/dL (74-106) D 01/30/17 14:00 Calcium 8.6 mg/dL (8.5-10.1) 01/30/17 14:00 Total Bilirubin 0.6 mg/dL (0.2-1.0) D 01/30/17 14:00 AST 43 U/L (15-37) H 01/30/17 14:00 ALT 36 U/L (12-78) D 01/30/17 14:00 Alkaline Phosphatase 72 U/L (45-117) 01/30/17 14:00 Total Protein 8.2 g/dl (6.4-8.2) D 01/30/17 14:00 Albumin 3.3 g/dl (3.4-5.0) L D 01/30/17 14:00 Urine Color Yellow 01/30/17 15:00 Urine Appearance Clear 01/30/17 15:00 Urine pH 5.0 (5.0-8.0) 01/30/17 15:00 Ur Specific [place] 1.025 (1.005-1.025) 01/30/17 15:00 Urine Protein Negative (NEGATIVE) 01/30/17 15:00 Urine Glucose (UA) Negative (NEGATIVE) 01/30/17 15:00 Urine Ketones Negative (NEGATIVE) 01/30/17 15:00 Urine Blood Negative (NEGATIVE) 01/30/17 15:00 Urine Nitrite Negative (NEGATIVE) 01/30/17 15:00 Urine Bilirubin Negative (NEGATIVE) 01/30/17 15:00 Urine Urobilinogen Negative mg/dL (0.2-1.0) 01/30/17 15:00 Ur Leukocyte Esterase Negative (NEGATIVE) 01/30/17 15:00 RPR Titer Nonreactive (NONREACTIVE) 01/30/17 14:00 LOW HGB/HCT Assessment: 01/31/17 11:53 WITHDRAWAL SX PREVIOUS HX LOW HGB/HCT ANEMIA Plan: CONTINUE DETOX FEOSOL DIRECTED
[2017-01-31] MEDS: FERROUS SO4 325 MG TABLET (FP) PO SCH ×2 (12:23→17:57)
[2017-01-31] MEDS: THIAMINE HCL 100 MG TABLET (FP) PO SCH (23:12)
[2017-02-01] MEDS: FERROUS SO4 325 MG TABLET (FP) PO SCH ×3 (07:15→20:12)
[2017-02-01] MEDS ORDERED: METHADONE HCL 5 MG TABLET (FOR DETOX USE ONLY) PO ONE (10:00)
[2017-02-01] MEDS: NICOTINE 14 MG/24 HOURS TOPICAL PATCH TD SCH (10:45)
[2017-02-01] MEDS: SILVER SULFADIAZINE 1% TOP CREAM 50 GM JAR TP SCH ×2 (10:45→22:51)
[2017-02-01] MEDS: PRENATAL VITAMINS W/ FOLIC ACID TABLET (FP) PO SCH (10:45)
--- NOTE | 2017-02-01 19:25 | PN ---
S COWS - Scale Resting Pulse: 0= [place] 80 or Below Sweatin= Chills/Flushing Restless Observation: 0= Sits Still Pupil Size: 0= Normal to Room Light Bone or Joint Aches: 2= Severe Diffuse Aches Runny Nose/ Eye Tearin= Runny Nose/Eyes GI Upset > 30mins: 1= Stomach Cramp Tremor Observation of Outstretched Hands: 2= Slight Tremor Visible Yawning Observation: 1= 1-2x During Session Anxiety or Irritability: 2=Irritable/Anxious Goose Flesh Skin: 3=Piloerection COWS Score: 14 [facility] Progress Note (SOAP) Subjective: FAtigue, Tremors, Body Aches. Objective: PT. A & O X 3. NO ACUTE DISTRESS. PT. DENIES CHEST PAIN. 02/01/17 19:23 Vital Signs Temperature 97.0 F L 02/01/17 18:28 Pulse Rate 65 02/01/17 18:28 Respiratory Rate 18 02/01/17 18:28 Blood Pressure 129/83 02/01/17 18:28 O2 Sat by Pulse Oximetry (%) Laboratory Tests 01/30/17 01/30/17 01/30/17 14:00 14:00 14:00 WBC 4.6 RBC 2.73 L D Hgb 8.8 L D Hct 26.4 L D MCV 96.9 H MCH 32.3 MCHC 33.4 RDW 14.4 Plt Count 202 D MPV 9.5 D Neutrophils % 66.0 Lymphocytes % 18.1 D Monocytes % 10.6 H Eosinophils % 4.8 H Basophils % 0.5 Sodium 140 Potassium 3.8 Chloride 103 Carbon Dioxide 32 Anion Gap 5 L BUN 25 H D Creatinine 1.0 Creat Clearance w eGFR > 60 Random Glucose 88 D Calcium 8.6 Total Bilirubin 0.6 D AST 43 H ALT 36 D Alkaline Phosphatase 72 Total Protein 8.2 D Albumin 3.3 L D Urine Color Urine Appearance Urine pH Ur Specific [place] Urine Protein Urine Glucose (UA) Urine Ketones Urine Blood Urine Nitrite Urine Bilirubin Urine Urobilinogen Ur Leukocyte Esterase RPR Titer Nonreactive 01/30/17 15:00 WBC RBC Hgb Hct MCV MCH MCHC RDW Plt Count MPV Neutrophils % Lymphocytes % Monocytes % Eosinophils % Basophils % Sodium Potassium Chloride Carbon Dioxide Anion Gap BUN Creatinine Creat Clearance w eGFR Random Glucose Calcium Total Bilirubin AST ALT Alkaline Phosphatase Total Protein Albumin Urine Color Yellow Urine Appearance Clear Urine pH 5.0 Ur Specific [place] 1.025 Urine Protein Negative Urine Glucose (UA) Negative Urine Ketones Negative Urine Blood Negative Urine Nitrite Negative Urine Bilirubin Negative Urine Urobilinogen Negative Ur Leukocyte Esterase Negative RPR Titer LABS NOTED. 02/01/17 19:26 Assessment: 02/01/17 19:24 WITHDRAWAL SYMPTOMS. ANEMIA. 02/01/17 19:26 Plan: CONTINUE DETOX. INCREASE PO FLUID INTAKE.
[2017-02-01] MEDS: THIAMINE HCL 100 MG TABLET (FP) PO SCH (22:51)
[2017-02-02] MEDS: FERROUS SO4 325 MG TABLET (FP) PO SCH ×3 (08:15→18:20)
[2017-02-02] MEDS ORDERED: METHADONE HCL 5 MG TABLET (FOR DETOX USE ONLY) PO ONE (10:00)
[2017-02-02] MEDS: PRENATAL VITAMINS W/ FOLIC ACID TABLET (FP) PO SCH (10:36)
[2017-02-02] MEDS: SILVER SULFADIAZINE 1% TOP CREAM 50 GM JAR TP SCH ×2 (10:37→22:26)
[2017-02-02] MEDS: NICOTINE 14 MG/24 HOURS TOPICAL PATCH TD SCH (10:37)
--- NOTE | 2017-02-02 17:34 | PN ---
BHS Progress Note (SOAP) Subjective: Interrupted sleep, pain in legs, nausea, sweating Objective: 02/02/17 17:32 Last Vital Signs Temp Pulse Resp BP Pulse Ox 98.1 F 59 L 18 153/90 02/02/17 14:14 02/02/17 14:14 02/02/17 14:14 02/02/17 14:14 Laboratory Tests 01/30/17 01/30/17 01/30/17 14:00 14:00 14:00 WBC 4.6 RBC 2.73 L D Hgb 8.8 L D Hct 26.4 L D MCV 96.9 H MCH 32.3 MCHC 33.4 RDW 14.4 Plt Count 202 D MPV 9.5 D Neutrophils % 66.0 Lymphocytes % 18.1 D Monocytes % 10.6 H Eosinophils % 4.8 H Basophils % 0.5 Sodium 140 Potassium 3.8 Chloride 103 Carbon Dioxide 32 Anion Gap 5 L BUN 25 H D Creatinine 1.0 Creat Clearance w eGFR > 60 Random Glucose 88 D Calcium 8.6 Total Bilirubin 0.6 D AST 43 H ALT 36 D Alkaline Phosphatase 72 Total Protein 8.2 D Albumin 3.3 L D Urine Color Urine Appearance Urine pH Ur Specific [place] Urine Protein Urine Glucose (UA) Urine Ketones Urine Blood Urine Nitrite Urine Bilirubin Urine Urobilinogen Ur Leukocyte Esterase RPR Titer Nonreactive 01/30/17 15:00 WBC RBC Hgb Hct MCV MCH MCHC RDW Plt Count MPV Neutrophils % Lymphocytes % Monocytes % Eosinophils % Basophils % Sodium Potassium Chloride Carbon Dioxide Anion Gap BUN Creatinine Creat Clearance w eGFR Random Glucose Calcium Total Bilirubin AST ALT Alkaline Phosphatase Total Protein Albumin Urine Color Yellow Urine Appearance Clear Urine pH 5.0 Ur Specific [place] 1.025 Urine Protein Negative Urine Glucose (UA) Negative Urine Ketones Negative Urine Blood Negative Urine Nitrite Negative Urine Bilirubin Negative Urine Urobilinogen Negative Ur Leukocyte Esterase Negative RPR Titer Labs noted: bun 25 Assessment: 02/02/17 17:33 Withdrawal symptoms Noted with azotemia Plan: Continue detox Azotemia: encouraged to drink more water (water pitcher ordered)
[2017-02-02] MEDS ORDERED: ZOLPIDEM TARTRATE 5 MG TABLET PO PRN (21:00)
[2017-02-02] MEDS: THIAMINE HCL 100 MG TABLET (FP) PO SCH (22:16)
[2017-02-03] MEDS: FERROUS SO4 325 MG TABLET (FP) PO SCH ×3 (08:00→18:36)
--- NOTE | 2017-02-03 09:32 | PN ---
BHS Progress Note (SOAP) Subjective: nausea, sweats, interrupted sleep, anxiety, tremors Objective: 02/03/17 09:30 Vital Signs 02/03/17 09:21 Temperature 98.1 F Pulse Rate 65 Respiratory 18 Rate Blood Pressure 128/71 Laboratory Tests 01/30/17 01/30/17 01/30/17 14:00 14:00 14:00 WBC 4.6 RBC 2.73 L D Hgb 8.8 L D Hct 26.4 L D MCV 96.9 H MCH 32.3 MCHC 33.4 RDW 14.4 Plt Count 202 D MPV 9.5 D Neutrophils % 66.0 Lymphocytes % 18.1 D Monocytes % 10.6 H Eosinophils % 4.8 H Basophils % 0.5 Sodium 140 Potassium 3.8 Chloride 103 Carbon Dioxide 32 Anion Gap 5 L BUN 25 H D Creatinine 1.0 Creat Clearance w eGFR > 60 Random Glucose 88 D Calcium 8.6 Total Bilirubin 0.6 D AST 43 H ALT 36 D Alkaline Phosphatase 72 Total Protein 8.2 D Albumin 3.3 L D Urine Color Urine Appearance Urine pH Ur Specific [place] Urine Protein Urine Glucose (UA) Urine Ketones Urine Blood Urine Nitrite Urine Bilirubin Urine Urobilinogen Ur Leukocyte Esterase RPR Titer Nonreactive 01/30/17 15:00 WBC RBC Hgb Hct MCV MCH MCHC RDW Plt Count MPV Neutrophils % Lymphocytes % Monocytes % Eosinophils % Basophils % Sodium Potassium Chloride Carbon Dioxide Anion Gap BUN Creatinine Creat Clearance w eGFR Random Glucose Calcium Total Bilirubin AST ALT Alkaline Phosphatase Total Protein Albumin Urine Color Yellow Urine Appearance Clear Urine pH 5.0 Ur Specific [place] 1.025 Urine Protein Negative Urine Glucose (UA) Negative Urine Ketones Negative Urine Blood Negative Urine Nitrite Negative Urine Bilirubin Negative Urine Urobilinogen Negative Ur Leukocyte Esterase Negative RPR Titer labs reviewed Assessment: 02/03/17 09:31 anemai, hypoalbuminemia, withdrawal sx Plan: cont detox, fluids, iron supplements, ensure plus, encourage ambulation, repeat labs prior to d/c
[2017-02-03] MEDS ORDERED: ZOLPIDEM TARTRATE 10 MG TABLET (PARK CARE ONLY) PO PRN (09:33)
[2017-02-03] MEDS ORDERED: METHADONE HCL 10 MG TABLET (FOR DETOX USE ONLY) PO ONE (10:00)
[2017-02-03] MEDS: SILVER SULFADIAZINE 1% TOP CREAM 50 GM JAR TP SCH ×2 (10:54→22:32)
[2017-02-03] MEDS: PRENATAL VITAMINS W/ FOLIC ACID TABLET (FP) PO SCH (10:54)
[2017-02-03] MEDS: NICOTINE 14 MG/24 HOURS TOPICAL PATCH TD SCH (10:54)
[2017-02-03] MEDS: THIAMINE HCL 100 MG TABLET (FP) PO SCH (22:32)
[2017-02-04] MEDS ORDERED: METHADONE HCL 5 MG TABLET (FOR DETOX USE ONLY) PO ONE (06:00)
--- NOTE | 2017-02-04 08:45 | DS ---
[facility] Detox Discharge Summary Admission Date: 01/30/17 Discharge Date: 02/04/17 - History Present History: Cocaine Dependence, Opioid Dependence Additional Comments: DETOX COMPLETED. ALERT O X 3. NAD. PT INSTRUCTED TO FOLLOW UP WITH MEDICAL MANAGEMENT AT [facility] FOR MEDICAL MANAGEMENT OF HIS MEDICAL CONDITION. Pertinent Past History: CHRONIC BILATERAL LEG ULCERS. HYPERTENSION ANEMIA WEIGHT LOSS. - Physical Exam Results Vital Signs: Vital Signs Temperature 97.6 F 02/04/17 06:35 Pulse Rate 61 02/04/17 06:35 Respiratory Rate 18 02/04/17 06:35 Blood Pressure 133/81 02/04/17 06:35 O2 Sat by Pulse Oximetry (%) - Treatment Hospital Course: Detox Protocol Followed, Detoxed Safely, Responded well, Discharged Condition Good - Medication Discharge Medications: Ambulatory Orders NK [No Known Home Medication] 01/30/17 - Diagnosis (1) Dry skin Status: Chronic (2) Nicotine dependence Status: Acute Qualifiers: Nicotine product type: cigarettes Substance use status: in withdrawal Qualified Code(s): F17.213 - Nicotine dependence, cigarettes, with withdrawal (3) Opioid dependence with withdrawal Status: Acute (4) Skin ulcers of both feet Status: Chronic (5) Weight loss Status: Chronic (6) Anemia Status: Chronic (7) Hypertension Status: Chronic Qualifiers: Hypertension type: essential hypertension Qualified Code(s): I10 - Essential (primary) hypertension (8) Cocaine dependence, uncomplicated Status: Acute - AMA Did Patient Leave Against Medical Advice: No
[2017-02-04] MEDS: SILVER SULFADIAZINE 1% TOP CREAM 50 GM JAR TP SCH (09:29)
[2017-02-04] MEDS: PRENATAL VITAMINS W/ FOLIC ACID TABLET (FP) PO SCH (09:29)
[2017-02-04] MEDS: FERROUS SO4 325 MG TABLET (FP) PO SCH (09:29)
[2017-02-04 09:30] VITALS: BP 144/91; PULSE 69; TEMP 97
--- NOTE | 2017-02-06 11:39 | EKG ---
Test Reason : Blood Pressure : / mmHG Vent. Rate : 060 BPM Atrial Rate : 060 BPM P-R Int : 258 ms QRS Dur : 120 ms QT Int : 436 ms P-R-T Axes : 081 044 075 degrees QTc Int : 436 ms SINUS RHYTHM WITH SINUS ARRHYTHMIA WITH 1ST DEGREE A-V BLOCK POSSIBLE LEFT ATRIAL ENLARGEMENT RIGHT BUNDLE BRANCH BLOCK LEFT VENTRICULAR HYPERTROPHY ABNORMAL ECG WHEN COMPARED WITH ECG OF 07-JAN-2017 06:58, NO SIGNIFICANT CHANGE WAS FOUND Confirmed by ARTURO SALCIDO MD ([id number]) on 02/06/2017 11:38:30 AM Referred By: Jese Danielson Confirmed By:ARTURO SALCIDO MD
== END 2017-02-04 09:42 | disposition home or self-care (01) | DRG 897 ==
LOC: YASAS 10:30 → Y3N 14:13
PROVIDERS: ADMIT Internal Medicine; ATTEND Internal Medicine
PROC: HZ2ZZZZ Detoxification Services for Substance Abuse Treatment (ICD-10-PCS; principal; 2017-02-04)
DX: F11.23 Opioid dependence with withdrawal (principal); F14.20 Cocaine dependence, uncomplicated; F17.213 Nicotine dependence, cigarettes, with withdrawal; I10 Essential (primary) hypertension; D64.9 Anemia, unspecified; L85.3 Xerosis cutis; R63.4 Abnormal weight loss
CPT/HCPCS: 36415; 80053; 81003; 85025; 86593; 93005; 93010

== ENCOUNTER 2018-08-29 10:54 | Inpatient (IN) | payer OTHER ==
[~2018-08-29 10:54] MED LIST: METHADONE HCL 10 MG TABLET (FOR DETOX USE ONLY) PO ONE
[2018-08-29 11:17] VITALS: BMI 19.2
--- NOTE | 2018-08-29 12:07 | HP ---
COWS - Scale Resting Pulse: 0= [place] 80 or Below Sweatin= Chills/Flushing Restless Observation: 1= Difficult to Sit Still Pupil Size: 1= Pupils >than Normal Bone or Joint Aches: 1= Mild Discomfort Runny Nose/ Eye Tearin= Runny Nose/Eyes GI Upset > 30mins: 2= Nausea/Diarrhea Tremor Observation: 1= Tremor [place], Not Seen Yawning Observation: 1= 1-2x During Session Anxiety or Irritability: 2=Irritable/Anxious Goose Flesh Skin: 0=Smooth Skin COWS Score: 12 CIWA Score - Admission Criteria [facility]ASAS Guidelines: Admission for Medically Managed Detox: Requires at least one of the followin. CIWA greater than 12 2. Seizures within the past 24 hours 3. Delirium tremens within the past 24 hours 4. Hallucinations within the past 24 hours 5. Acute intervention needed for co occurring medical disorder 6. Acute intervention needed for co occurring psychiatric disorder 7. Severe withdrawal that cannot be handled at a lower level of care (continued vomiting, continued diarrhea, abnormal vital signs) requiring intravenous medication and/or fluids 8. Admission ROS [facility] Chief Complaint: " I want to heroin detox" Allergies/Adverse Reactions: Allergies Allergy/AdvReac Type Severity Reaction Status Date / Time tomato [Tomato] Allergy Unknown Rash Verified 01/30/17 13:46 No Known Drug Allergies Allergy Verified 01/30/17 13:46 History of Present Illness: 72 yo male with hx of heroin (nasal) and nicotine dependence since age 19, is here seeking detox. Last detox [facility] seven months ago. PMHX: HTN. Denies psychiatric hx. Denies suicidal / homicidal ideation. Denies hx of seizures and blackouts. Overdose x 1, 15 years ago. Exam Limitations: No Limitations - Ebola screening Have you traveled outside of the country in the last 21 days: No (N) Have you had contact with anyone from an Ebola affected area: No Have you been sick,other than usual withdrawal symptoms: No Do you have a fever: No - Review of Systems Constitutional: Chills, Loss of Appetite, Changes in sleep, Weakness, Unintentional Wgt. Loss EENT: reports: Dental Problems (missing teeth) Respiratory: reports: No Symptoms reported Cardiac: reports: No Symptoms Reported GI: reports: Nausea, Poor Appetite, Poor Fluid Intake, Abdominal cramping, Other (flactualnce) : reports: No Symptoms Reported Musculoskeletal: reports: Back Pain, Joint Pain Integumentary: reports: Dryness, Pruritus Neuro: reports: Weakness Endocrine: reports: Increased Thirst Hematology: reports: No Symptoms Reported Psychiatric: reports: Orientated x3, Anxious Other Systems: Reviewed and Negative Patient History - Patient Medical History Hx Anemia: No Hx Asthma: No Hx Chronic Obstructive Pulmonary Disease (COPD): No Hx Cancer: No Hx Cardiac Disorders: No Hx Congestive Heart Failure: No Hx Hypertension: No Hx Hypercholesterolemia: No Hx Pacemaker: No HX Cerebrovascular Accident: No Hx Seizures: No Hx Dementia: No Hx Diabetes: No Hx Gastrointestinal Disorders: No Hx Liver Disease: No Hx Genitourinary Disorders: No Hx Sexually Transmitted Disorders: No Hx Renal Disease (ESRD): No Hx Thyroid Disease: No Hx Human Immunodeficiency Virus (HIV): No (negative) Hx Hepatitis C: No (negative) Hx Depression: No Hx Suicide Attempt: No (denies) Hx Bipolar Disorder: No Hx Schizophrenia: No - Patient Surgical History Past Surgical History: No Hx Neurologic Surgery: No Hx Cataract Extraction: No Hx Cardiac Surgery: No Hx Lung Surgery: No Hx Breast Surgery: No Hx Breast Biopsy: No Hx Abdominal Surgery: No Hx Appendectomy: No Hx Cholecystectomy: No Hx Genitourinary Surgery: No Hx Section: No Hx Orthopedic Surgery: No Hx Hysterectomy: No Other Surgical History: surgery for hemorroids Anesthesia Reaction: No - PPD History Previous Implant?: No Documented Results: Negative w/proof Date: 02/01/17 Results: 0 mm PPD to be Administered?: Yes - Smoking Cessation Smoking history: Current every day smoker Have you smoked in the past 12 months: Yes Aproximately how many cigarettes per day: 7 Cigars Per Day: 0 Hx Chewing Tobacco Use: No Initiated information on smoking cessation: Yes 'Breaking Loose' booklet given: 08/29/18 - Substance & Tx. History Hx Alcohol Use: No Hx Substance Use: Yes Substance Use Type: Heroin Hx Substance Use Treatment: Yes (Last detox [facility] seven months ago.) - Substances Abused heroin Route: Inhalation Frequency: Daily Amount used: 3 - 4 Age of first use: 19 Date of Last Use: 08/28/18 Family Disease History - Family Disease History Family Disease History: Heart Disease: Mother ( at age 52), CA: Brother, Respiratory: Grandparent (asthma Hx. Grandmother), Other: Father () Admission Physical Exam [facility] - Vital Signs Vital Signs: Vital Signs - 24 hr 08/29/18 11:15 Temperature 96.5 F L Pulse Rate 76 Respiratory 20 Rate Blood Pressure 186/94 H - Physical General Appearance: Yes: Disheveled, Mild Distress, Cachetic, Anxious HEENTM: Yes: EOMI, Hearing grossly Normal, Normal ENT Inspection, Normocephalic , Normal Voice, FRANK, Pharynx Normal, Tm's normal, Rhinorrhea, Other (poor dentition, dry mucous membranes) Respiratory: Yes: Chest Non-Tender, Lungs Clear, Normal Breath Sounds, No Respiratory Distress, No Accessory Muscle Use Neck: Yes: Within Normal Limits Breast: Yes: Breast Exam Deferred Cardiology: Yes: Regular Rhythm, Regular Rate Abdominal: Yes: Normal Bowel Sounds, Non Tender, Flat, Soft Genitourinary: Yes: Within Normal Limits Back: Yes: Normal Inspection Musculoskeletal: Yes: full range of Motion, Gait Steady, Pelvis Stable, Back pain Extremities: Yes: Normal Capillary Refill, Normal Inspection, Normal Range of Motion Neurological: Yes: home health cna II-XII NML intact, Fully Oriented, Alert, Motor Strength 5/5, Depressed Affect Integumentary: Yes: Normal Color, Warm, Moist, Other (dry flaky skin b/l lower extremities) Lymphatic: Yes: Within Normal Limits - Addiitonal Findings: Patient will like to follow up with [facility] upon completing detox - Diagnostic (1) Nicotine dependence Current Visit: Yes Status: Acute Qualifiers: Nicotine product type: cigarettes Substance use status: in withdrawal Qualified Code(s): F17.213 - Nicotine dependence, cigarettes, with withdrawal (2) Opioid dependence with withdrawal Current Visit: Yes Status: Acute (3) Dry skin Current Visit: Yes Status: Chronic (4) Hypertension Current Visit: Yes Status: Chronic Qualifiers: Hypertension type: essential hypertension Qualified Code(s): I10 - Essential (primary) hypertension Comment: reports not taking any meds (5) Weight loss Current Visit: Yes Status: Acute (6) Elevated blood pressure reading in office with diagnosis of hypertension Current Visit: Yes Status: Acute Cleared for Admission [facility] - Detox or Rehab [facility] Level of Care: Medically Managed Detox Regimen/Protocol: Methadone S Breath Alcohol Content Breath Alcohol Content: 0 Urine Drug Screen - Results Drug Screen Negative: No Urine Drug Screen Results: OPI-Opiates, FEN-Fentanyl Inpatient Rehab Admission - Rehab Decision to Admit Inpatient rehab admission?: No
[2018-08-29] MEDS ORDERED: NICOTINE POLACRILEX 2 MG GUM BUC PRN (12:15)
[2018-08-29] MEDS ORDERED: MAG HYDROX/AL HYDROX/SIMETH 30 ML UNIT-DOSE CUP PO PRN (12:15)
[2018-08-29] MEDS ORDERED: MAGNESIUM HYDROX 2400MG/30ML ORAL SUSPENSION 30 ML CUP PO PRN (12:15)
[2018-08-29] MEDS ORDERED: ACETAMINOPHEN 325 MG TABLET (FP) PO PRN (12:15)
[2018-08-29] MEDS ORDERED: MENTHOL/PHENOL 1 EACH UD MM PRN (12:15)
[2018-08-29] MEDS ORDERED: METHOCARBAMOL 500 MG TABLET PO PRN (12:15)
[2018-08-29] MEDS ORDERED: BISMUTH SUBSALICYLATE 524 MG/30 ML UD PO PRN (12:15)
[2018-08-29] MEDS ORDERED: MAGNESIUM CITRATE 300 ML BOTTLE PO PRN (12:15)
[2018-08-29] MEDS ORDERED: IBUPROFEN 400 MG TABLET (FP) PO PRN (12:15)
[2018-08-29] MEDS: cloNIDine HCL 0.1 MG TABLET PO PRN ×2 (15:12→22:47)
[2018-08-29] MEDS ORDERED: METHADONE HCL 10 MG TABLET (FOR DETOX USE ONLY) PO ONE ×2 (15:30→23:00)
--- NOTE | 2018-08-29 17:03 | EKG ---
Test Reason : Blood Pressure : / mmHG Vent. Rate : 067 BPM Atrial Rate : 067 BPM P-R Int : 262 ms QRS Dur : 136 ms QT Int : 434 ms P-R-T Axes : 072 012 065 degrees QTc Int : 458 ms SINUS RHYTHM WITH 1ST DEGREE A-V BLOCK LEFT ATRIAL ENLARGEMENT RIGHT BUNDLE BRANCH BLOCK ABNORMAL ECG WHEN COMPARED WITH ECG OF 30-JAN-2017 14:03, NO SIGNIFICANT CHANGE WAS FOUND Confirmed by JI HICKS, GERDA ([id number]) on 08/29/2018 5:03:45 PM Referred By: Confirmed By:GERDA WORKMAN MD
[2018-08-29 18:54] LABS: PH,URINE 6.5 (5.0-8.0); URINE APPEARANCE CLEAR; URINE BILIRUBIN 1+ (<2.0 mg/dL); URINE COLOR DK YELLOW; URINE GLUCOSE (UA) TRACE (NEGATIVE); URINE KETONE NEGATIVE (NEGATIVE); URINE LEUK ESTERASE NEGATIVE (NEGATIVE); URINE NITRITE NEGATIVE (NEGATIVE); URINE PROTEIN TRACE (NEGATIVE)
[2018-08-29] MEDS: THIAMINE HCL 100 MG TABLET (FP) PO SCH (22:46)
[2018-08-29] MEDS: MELATONIN 5 MG TABLETS PO PRN (22:48)
[2018-08-29] MEDS: TOLNAFTATE 1% CREAM 15 GM TUBE TP SCH (23:23)
[2018-08-30] MEDS ORDERED: METHADONE HCL 10 MG TABLET (FOR DETOX USE ONLY) PO ONE (10:00)
[2018-08-30] MEDS: TOLNAFTATE 1% CREAM 15 GM TUBE TP SCH ×2 (10:22→22:25)
[2018-08-30] MEDS: NICOTINE 14 MG/24 HOURS TOPICAL PATCH TD SCH (10:23)
[2018-08-30] MEDS: PRENATAL VITAMINS W/ FOLIC ACID TABLET (FP) PO SCH (10:23)
--- NOTE | 2018-08-30 15:33 | PN ---
BHS COWS - Scale Resting Pulse: 0= [place] 80 or Below Sweatin= Chills/Flushing Restless Observation: 0= Sits Still Pupil Size: 0= Normal to Room Light Bone or Joint Aches: 1= Mild Discomfort Runny Nose/ Eye Tearin= Nasal Congestion GI Upset > 30mins: 1= Stomach Cramp Tremor Observation of Outstretched Hands: 1= Tremor [place], Not Seen Yawning Observation: 2= >3x During Session Anxiety or Irritability: 1=Feels Anxious/Irritable Goose Flesh Skin: 0=Smooth Skin COWS Score: 8 BHS Progress Note (SOAP) Subjective: irritable dislike the food offer ensure supplement Objective: 08/30/18 15:34 Vital Signs Temperature 98.2 F 08/30/18 13:05 Pulse Rate 51 L 08/30/18 13:05 Respiratory Rate 18 08/30/18 13:05 Blood Pressure 137/68 08/30/18 13:05 O2 Sat by Pulse Oximetry (%) Laboratory Last Values Urine Color Dk yellow 08/29/18 14:30 Urine Appearance Clear 08/29/18 14:30 Urine pH 6.5 (5.0-8.0) D 08/29/18 14:30 Ur Specific [place] 1.025 (1.010-1.035) 08/29/18 14:30 Urine Protein Trace (NEGATIVE) 08/29/18 14:30 Urine Glucose (UA) Trace (NEGATIVE) 08/29/18 14:30 Urine Ketones Negative (NEGATIVE) 08/29/18 14:30 Urine Blood Negative (NEGATIVE) 08/29/18 14:30 Urine Nitrite Negative (NEGATIVE) 08/29/18 14:30 Urine Bilirubin 1+ (<2.0 mg/dL) H 08/29/18 14:30 Urine Urobilinogen 2.0 mg/dL (0.2-1.0) 08/29/18 14:30 Ur Leukocyte Esterase Negative (NEGATIVE) 08/29/18 14:30 lab noted Assessment: 08/30/18 15:35 withdrawal sx Plan: continue detox order admission lab
[2018-08-30] MEDS: MELATONIN 5 MG TABLETS PO PRN (22:25)
[2018-08-30] MEDS: cloNIDine HCL 0.1 MG TABLET PO PRN (22:25)
[2018-08-30] MEDS: THIAMINE HCL 100 MG TABLET (FP) PO SCH (22:25)
[2018-08-31] MEDS: TOLNAFTATE 1% CREAM 15 GM TUBE TP SCH ×2 (09:38→22:05)
[2018-08-31] MEDS: PRENATAL VITAMINS W/ FOLIC ACID TABLET (FP) PO SCH (09:38)
[2018-08-31] MEDS: NICOTINE 14 MG/24 HOURS TOPICAL PATCH TD SCH (09:40)
[2018-08-31] MEDS ORDERED: METHADONE HCL 10 MG TABLET (FOR DETOX USE ONLY) PO ONE (10:00)
[2018-08-31 10:21] LABS: HEMOGLOBIN 11.2 GM/dL (11.7-16.9); MCH 34.5 pg (25.7-33.7); MCHC 34.9 g/dl (32.0-35.9); MEAN PLT VOLUME 9.7 fl (7.5-11.1); PLATELET COUNT 139 K/MM3 (134-434); RBC 3.23 M/mm3 (4.00-5.60); RDW 11.9 % (11.9-15.9)
[2018-08-31 10:29] LABS: ALBUMIN 2.9 g/dl (3.4-5.0); ALK PHOS 51 U/L (45-117); ANION GAP 3 MMOL/L (8-16); BILIRUBIN,TOTAL 0.7 mg/dL (0.2-1); BLOOD UREA NITROGEN 20 mg/dL (7-18); CHLORIDE 104 mmol/L (98-107); CO2 34 mmol/L (21-32); CREATININE 1.2 mg/dL (0.55-1.3); GLUCOSE,RANDOM 81 mg/dL (74-106); POTASSIUM 4.1 mmol/L (3.5-5.1); SGOT/AST 38 U/L (15-37); SGPT/ALT 29 U/L (13-61); SODIUM 142 mmol/L (136-145); TOT PROT 6.5 g/dl (6.4-8.2)
--- NOTE | 2018-08-31 12:27 | PN ---
BHS COWS - Scale Resting Pulse: 0= [place] 80 or Below Sweatin= No chills or Flushing Restless Observation: 0= Sits Still Pupil Size: 0= Normal to Room Light Bone or Joint Aches: 1= Mild Discomfort Runny Nose/ Eye Tearin= Nasal Congestion GI Upset > 30mins: 0= None Tremor Observation of Outstretched Hands: 1= Tremor [place], Not Seen Yawning Observation: 1= 1-2x During Session Anxiety or Irritability: 1=Feels Anxious/Irritable Goose Flesh Skin: 0=Smooth Skin COWS Score: 5 BHS Progress Note (SOAP) Subjective: mild anxiety otherwise doing ok Objective: 08/31/18 12:28 Vital Signs Temperature 98.1 F 08/31/18 09:23 Pulse Rate 59 L 08/31/18 09:23 Respiratory Rate 18 08/31/18 09:23 Blood Pressure 148/86 08/31/18 09:23 O2 Sat by Pulse Oximetry (%) Laboratory Last Values WBC 4.0 K/mm3 (4.0-10.0) 08/31/18 07:00 RBC 3.23 M/mm3 (4.00-5.60) L 08/31/18 07:00 Hgb 11.2 GM/dL (11.7-16.9) L 08/31/18 07:00 Hct 32.0 % (35.4-49) L D 08/31/18 07:00 MCV 99.0 fl (80-96) H 08/31/18 07:00 MCH 34.5 pg (25.7-33.7) H 08/31/18 07:00 MCHC 34.9 g/dl (32.0-35.9) 08/31/18 07:00 RDW 11.9 % (11.9-15.9) D 08/31/18 07:00 Plt Count 139 K/MM3 (134-434) D 08/31/18 07:00 MPV 9.7 fl (7.5-11.1) 08/31/18 07:00 Sodium 142 mmol/L (136-145) 08/31/18 07:00 Potassium 4.1 mmol/L (3.5-5.1) 08/31/18 07:00 Chloride 104 mmol/L (98-107) 08/31/18 07:00 Carbon Dioxide 34 mmol/L (21-32) H 08/31/18 07:00 Anion Gap 3 MMOL/L (8-16) L 08/31/18 07:00 BUN 20 mg/dL (7-18) H 08/31/18 07:00 Creatinine 1.2 mg/dL (0.55-1.3) 08/31/18 07:00 Creat Clearance w eGFR 59.51 (>60) 08/31/18 07:00 Random Glucose 81 mg/dL (74-106) 08/31/18 07:00 Calcium 8.0 mg/dL (8.5-10.1) L 08/31/18 07:00 Total Bilirubin 0.7 mg/dL (0.2-1) 08/31/18 07:00 AST 38 U/L (15-37) H 08/31/18 07:00 ALT 29 U/L (13-61) 08/31/18 07:00 Alkaline Phosphatase 51 U/L (45-117) 08/31/18 07:00 Total Protein 6.5 g/dl (6.4-8.2) 08/31/18 07:00 Albumin 2.9 g/dl (3.4-5.0) L 08/31/18 07:00 Urine Color Dk yellow 08/29/18 14:30 Urine Appearance Clear 08/29/18 14:30 Urine pH 6.5 (5.0-8.0) D 08/29/18 14:30 Ur Specific [place] 1.025 (1.010-1.035) 08/29/18 14:30 Urine Protein Trace (NEGATIVE) 08/29/18 14:30 Urine Glucose (UA) Trace (NEGATIVE) 08/29/18 14:30 Urine Ketones Negative (NEGATIVE) 08/29/18 14:30 Urine Blood Negative (NEGATIVE) 08/29/18 14:30 Urine Nitrite Negative (NEGATIVE) 08/29/18 14:30 Urine Bilirubin 1+ (<2.0 mg/dL) H 08/29/18 14:30 Urine Urobilinogen 2.0 mg/dL (0.2-1.0) 08/29/18 14:30 Ur Leukocyte Esterase Negative (NEGATIVE) 08/29/18 14:30 RPR Titer Nonreactive (NONREACTIVE) 08/31/18 07:00 lab noted Assessment: 08/31/18 12:29 withdrawal sx Plan: continue detox
[2018-08-31] MEDS: THIAMINE HCL 100 MG TABLET (FP) PO SCH (22:04)
[2018-08-31] MEDS: cloNIDine HCL 0.1 MG TABLET PO PRN (22:05)
[2018-09-01] MEDS ORDERED: METHADONE HCL 10 MG TABLET (FOR DETOX USE ONLY) PO ONE (10:00)
[2018-09-01] MEDS: TOLNAFTATE 1% CREAM 15 GM TUBE TP SCH ×2 (10:12→22:14)
[2018-09-01] MEDS: PRENATAL VITAMINS W/ FOLIC ACID TABLET (FP) PO SCH (10:12)
[2018-09-01] MEDS: NICOTINE 14 MG/24 HOURS TOPICAL PATCH TD SCH (10:12)
[2018-09-01] MEDS: ACETAMINOPHEN 325 MG TABLET (FP) PO PRN (10:13)
--- NOTE | 2018-09-01 12:00 | PN ---
BHS COWS - Scale Resting Pulse: 0= [place] 80 or Below Sweatin= No chills or Flushing Restless Observation: 0= Sits Still Pupil Size: 0= Normal to Room Light Bone or Joint Aches: 1= Mild Discomfort Runny Nose/ Eye Tearin= Nasal Congestion GI Upset > 30mins: 0= None Tremor Observation of Outstretched Hands: 0= None Yawning Observation: 0= None Anxiety or Irritability: 1=Feels Anxious/Irritable Goose Flesh Skin: 0=Smooth Skin COWS Score: 3 BHS Progress Note (SOAP) Subjective: feeling better encourage medication assisted treatment maintenance program Objective: 09/01/18 11:59 Vital Signs Temperature 97 F L 09/01/18 09:32 Pulse Rate 64 09/01/18 09:32 Respiratory Rate 18 09/01/18 09:32 Blood Pressure 142/80 09/01/18 09:32 O2 Sat by Pulse Oximetry (%) Laboratory Last Values WBC 4.0 K/mm3 (4.0-10.0) 08/31/18 07:00 RBC 3.23 M/mm3 (4.00-5.60) L 08/31/18 07:00 Hgb 11.2 GM/dL (11.7-16.9) L 08/31/18 07:00 Hct 32.0 % (35.4-49) L D 08/31/18 07:00 MCV 99.0 fl (80-96) H 08/31/18 07:00 MCH 34.5 pg (25.7-33.7) H 08/31/18 07:00 MCHC 34.9 g/dl (32.0-35.9) 08/31/18 07:00 RDW 11.9 % (11.9-15.9) D 08/31/18 07:00 Plt Count 139 K/MM3 (134-434) D 08/31/18 07:00 MPV 9.7 fl (7.5-11.1) 08/31/18 07:00 Sodium 142 mmol/L (136-145) 08/31/18 07:00 Potassium 4.1 mmol/L (3.5-5.1) 08/31/18 07:00 Chloride 104 mmol/L (98-107) 08/31/18 07:00 Carbon Dioxide 34 mmol/L (21-32) H 08/31/18 07:00 Anion Gap 3 MMOL/L (8-16) L 08/31/18 07:00 BUN 20 mg/dL (7-18) H 08/31/18 07:00 Creatinine 1.2 mg/dL (0.55-1.3) 08/31/18 07:00 Creat Clearance w eGFR 59.51 (>60) 08/31/18 07:00 Random Glucose 81 mg/dL (74-106) 08/31/18 07:00 Calcium 8.0 mg/dL (8.5-10.1) L 08/31/18 07:00 Total Bilirubin 0.7 mg/dL (0.2-1) 08/31/18 07:00 AST 38 U/L (15-37) H 08/31/18 07:00 ALT 29 U/L (13-61) 08/31/18 07:00 Alkaline Phosphatase 51 U/L (45-117) 08/31/18 07:00 Total Protein 6.5 g/dl (6.4-8.2) 08/31/18 07:00 Albumin 2.9 g/dl (3.4-5.0) L 08/31/18 07:00 Urine Color Dk yellow 08/29/18 14:30 Urine Appearance Clear 08/29/18 14:30 Urine pH 6.5 (5.0-8.0) D 08/29/18 14:30 Ur Specific [place] 1.025 (1.010-1.035) 08/29/18 14:30 Urine Protein Trace (NEGATIVE) 08/29/18 14:30 Urine Glucose (UA) Trace (NEGATIVE) 08/29/18 14:30 Urine Ketones Negative (NEGATIVE) 08/29/18 14:30 Urine Blood Negative (NEGATIVE) 08/29/18 14:30 Urine Nitrite Negative (NEGATIVE) 08/29/18 14:30 Urine Bilirubin 1+ (<2.0 mg/dL) H 08/29/18 14:30 Urine Urobilinogen 2.0 mg/dL (0.2-1.0) 08/29/18 14:30 Ur Leukocyte Esterase Negative (NEGATIVE) 08/29/18 14:30 RPR Titer Nonreactive (NONREACTIVE) 08/31/18 07:00 lab noted Assessment: 03/26/19 11:59 withdrawal sx Plan: continue detox
[2018-09-01] MEDS: THIAMINE HCL 100 MG TABLET (FP) PO SCH (22:14)
[2018-09-02] MEDS ORDERED: METHADONE HCL 5 MG TABLET (FOR DETOX USE ONLY) PO ONE (06:00)
--- NOTE | 2018-09-02 09:14 | HP ---
[facility] Rehab Assess/Revision - Admission History Admitted to Rehab from: [address] - Vital signs Vital Signs: Vital Signs Period Temp Pulse Resp BP Sys/Garcia Pulse Ox Last 24 Hr 96.2 F-97 F 49-64 16-18 119-149/66-90 - Findings Detox History & Physical reviewed: Yes Concur with findings: Yes Comments/Additional Findings: transferred from detox to rehab admission as per protocol Inpatient Rehab Admission - Rehab Decision to Admit Inpatient rehab admission?: Yes - Initial Determination Are CD services needed?: Yes Free of communicable disease: Yes Not in need of hospitalization: Yes - Rehab Admission Criteria Previous failed treatment: Yes Poor recovery environment: Yes Comorbidities: Yes Lacks judgement: No Patient is meeting Inpatient Rehab admission criteria:: Yes
[2018-09-02] MEDS: NICOTINE 14 MG/24 HOURS TOPICAL PATCH TD SCH (10:08)
[2018-09-02] MEDS: PRENATAL VITAMINS W/ FOLIC ACID TABLET (FP) PO SCH (10:08)
[2018-09-02] MEDS: TOLNAFTATE 1% CREAM 15 GM TUBE TP SCH ×2 (10:09→22:07)
--- NOTE | 2018-09-02 15:25 | PN ---
[facility] Progress Note Note: Patient newly admitted to unit with bilateral chronic cellulitis in the lower extremities. Right lateral ankle with open draining area and left medial with open draining area. Malodorous. Triple antibiotic and dressing changes ordered.
[2018-09-02] MEDS ORDERED: PT OWN MED DRAWER 7, Y5N ONE (19:48)
[2018-09-02] MEDS: THIAMINE HCL 100 MG TABLET (FP) PO SCH (22:07)
[2018-09-02] MEDS: NEOMYCIN/POLYMYXIN/BACITRACIN (TRIPLE ANTIBIOTIC) 28 GM OINTMENT TP SCH (22:07)
[2018-09-03] MEDS: PRENATAL VITAMINS W/ FOLIC ACID TABLET (FP) PO SCH (09:05)
[2018-09-03] MEDS: ACETAMINOPHEN 325 MG TABLET (FP) PO PRN (09:06)
[2018-09-03] MEDS: NEOMYCIN/POLYMYXIN/BACITRACIN (TRIPLE ANTIBIOTIC) 28 GM OINTMENT TP SCH ×2 (10:28→22:03)
[2018-09-03] MEDS: NICOTINE 14 MG/24 HOURS TOPICAL PATCH TD SCH (10:28)
[2018-09-03] MEDS: TOLNAFTATE 1% CREAM 15 GM TUBE TP SCH ×2 (10:28→22:03)
--- NOTE | 2018-09-03 15:26 | PN ---
[facility] Progress Note Note: Bilateral ankle wounds improved. Right lateral- with yellow drainage. Left medial appears dry. Continue dressing changes.
[2018-09-03] MEDS: THIAMINE HCL 100 MG TABLET (FP) PO SCH (22:03)
[2018-09-04] MEDS: PRENATAL VITAMINS W/ FOLIC ACID TABLET (FP) PO SCH (11:03)
[2018-09-04] MEDS: NICOTINE 14 MG/24 HOURS TOPICAL PATCH TD SCH (11:03)
[2018-09-04] MEDS: TOLNAFTATE 1% CREAM 15 GM TUBE TP SCH ×2 (11:04→22:15)
[2018-09-04] MEDS: NEOMYCIN/POLYMYXIN/BACITRACIN (TRIPLE ANTIBIOTIC) 28 GM OINTMENT TP SCH ×2 (11:04→22:14)
[2018-09-04] MEDS ORDERED: NEOMYCIN/POLYMYXIN/BACITRACIN (TRIPLE ANTIBIOTIC) 28 GM OINTMENT TP SCH (14:05)
[2018-09-04] MEDS: ACETAMINOPHEN 325 MG TABLET (FP) PO PRN (15:06)
--- NOTE | 2018-09-04 15:12 | PN ---
[facility] Progress Note Note: PATIENT SEEN FOR MALODOROUS RIGHT LATERAL ANKLE OPEN AREA AND LEFT MEDIAL ANKLE DRY SCAB. RIGHT LATERAL ANKLE OPEN AREA WITH YELLOW DISCHARGE, FOUL SMELL. LEFT MEDICAL ANKLE DRY SCAB, INTACT, NO DISCHARGE PRESENT. + TENDERNESS TO RIGHT ANKLE PRESENT. NO REDNESS OR SWELLING. Vital Signs Temperature 97.4 F L 09/03/18 07:14 Pulse Rate 64 09/03/18 07:14 Respiratory Rate 18 09/04/18 07:24 Blood Pressure 135/89 09/03/18 07:14 O2 Sat by Pulse Oximetry (%) Laboratory Tests 08/29/18 08/31/18 08/31/18 14:30 07:00 07:00 WBC 4.0 RBC 3.23 L Hgb 11.2 L Hct 32.0 L D MCV 99.0 H MCH 34.5 H MCHC 34.9 RDW 11.9 D Plt Count 139 D MPV 9.7 Sodium 142 Potassium 4.1 Chloride 104 Carbon Dioxide 34 H Anion Gap 3 L BUN 20 H Creatinine 1.2 Creat Clearance w eGFR 59.51 Random Glucose 81 Calcium 8.0 L Total Bilirubin 0.7 AST 38 H ALT 29 Alkaline Phosphatase 51 Total Protein 6.5 Albumin 2.9 L Urine Color Dk yellow Urine Appearance Clear Urine pH 6.5 D Ur Specific [place] 1.025 Urine Protein Trace Urine Glucose (UA) Trace Urine Ketones Negative Urine Blood Negative Urine Nitrite Negative Urine Bilirubin 1+ H Urine Urobilinogen 2.0 Ur Leukocyte Esterase Negative RPR Titer 08/31/18 07:00 WBC RBC Hgb Hct MCV MCH MCHC RDW Plt Count MPV Sodium Potassium Chloride Carbon Dioxide Anion Gap BUN Creatinine Creat Clearance w eGFR Random Glucose Calcium Total Bilirubin AST ALT Alkaline Phosphatase Total Protein Albumin Urine Color Urine Appearance Urine pH Ur Specific [place] Urine Protein Urine Glucose (UA) Urine Ketones Urine Blood Urine Nitrite Urine Bilirubin Urine Urobilinogen Ur Leukocyte Esterase RPR Titer Nonreactive A/P MALODOROUS RIGHT ANKLE WOUND DRY SCAB TO LEFT MEDICAL ANKLE WILL CONTINUE NEOSPORIN TO LEFT MEDIAL DRY SCAB BID X 7 DAYS BACTROBAN OINTMENT ORDERED TO RIGHT LATERAL ANKLE WOUND BID X 7 DAYS START KEFLEX 500MG EVERY 6H X 7 DAYS CONTINUE TO MONITOR CLINICALLY
[2018-09-04] MEDS: CEPHALEXIN MONOHYDRATE 500 MG CAPSULE (UD) PO SCH (17:07)
[2018-09-04] MEDS ORDERED: MUPIROCIN 2% TOPICAL OINTMENT 22 GM TUBE TP SCH (22:00)
[2018-09-04] MEDS: MUPIROCIN 2% TOPICAL OINTMENT 22 GM TUBE TP SCH (22:14)
[2018-09-04] MEDS: THIAMINE HCL 100 MG TABLET (FP) PO SCH (22:14)
[2018-09-05] MEDS: CEPHALEXIN MONOHYDRATE 500 MG CAPSULE (UD) PO SCH ×5 (00:12→23:50)
[2018-09-05] MEDS: ACETAMINOPHEN 325 MG TABLET (FP) PO PRN ×2 (06:37→14:36)
[2018-09-05] MEDS: NICOTINE 14 MG/24 HOURS TOPICAL PATCH TD SCH (10:21)
[2018-09-05] MEDS: PRENATAL VITAMINS W/ FOLIC ACID TABLET (FP) PO SCH (10:21)
[2018-09-05] MEDS: MUPIROCIN 2% TOPICAL OINTMENT 22 GM TUBE TP SCH ×2 (10:22→21:13)
[2018-09-05] MEDS: TOLNAFTATE 1% CREAM 15 GM TUBE TP SCH ×2 (10:22→21:13)
[2018-09-05] MEDS: NEOMYCIN/POLYMYXIN/BACITRACIN (TRIPLE ANTIBIOTIC) 28 GM OINTMENT TP SCH ×2 (10:22→21:14)
--- NOTE | 2018-09-05 12:51 | PN ---
[facility] Progress Note Note: complaint of pain in both ankle on keflex 500 mgs po q 6 hrs for infected ulcer right ankle afebrile also local wound care with bactroban ointment stated tylenol did not help ambulate on wheel chair treatment continue present therapy ,keflex 500 mgs po q 6hrs,local care with cleaning and bactroban ointment, motrin 600 mgs q6 hrs prn for pain,close monitoring
[2018-09-05] MEDS ORDERED: IBUPROFEN 600 MG TABLET (FP) PO PRN (12:52)
[2018-09-05] MEDS: THIAMINE HCL 100 MG TABLET (FP) PO SCH (21:13)
[2018-09-06] MEDS: ACETAMINOPHEN 325 MG TABLET (FP) PO PRN ×3 (06:45→21:02)
[2018-09-06] MEDS: CEPHALEXIN MONOHYDRATE 500 MG CAPSULE (UD) PO SCH ×4 (06:46→23:18)
[2018-09-06] MEDS: NEOMYCIN/POLYMYXIN/BACITRACIN (TRIPLE ANTIBIOTIC) 28 GM OINTMENT TP SCH ×2 (10:40→21:04)
[2018-09-06] MEDS ORDERED: PT OWN MED DRAWER 7, Y5N ONE ×2 (10:41→14:49)
[2018-09-06] MEDS: TOLNAFTATE 1% CREAM 15 GM TUBE TP SCH ×2 (10:41→21:04)
[2018-09-06] MEDS: PRENATAL VITAMINS W/ FOLIC ACID TABLET (FP) PO SCH (10:41)
[2018-09-06] MEDS: NICOTINE 14 MG/24 HOURS TOPICAL PATCH TD SCH (10:41)
[2018-09-06] MEDS: MUPIROCIN 2% TOPICAL OINTMENT 22 GM TUBE TP SCH ×2 (10:41→21:04)
[2018-09-06] MEDS: THIAMINE HCL 100 MG TABLET (FP) PO SCH (21:02)
[2018-09-07] MEDS: CEPHALEXIN MONOHYDRATE 500 MG CAPSULE (UD) PO SCH ×4 (07:45→23:03)
[2018-09-07] MEDS: ACETAMINOPHEN 325 MG TABLET (FP) PO PRN ×3 (07:46→18:30)
[2018-09-07] MEDS: TOLNAFTATE 1% CREAM 15 GM TUBE TP SCH ×2 (10:34→21:56)
[2018-09-07] MEDS: PRENATAL VITAMINS W/ FOLIC ACID TABLET (FP) PO SCH (10:34)
[2018-09-07] MEDS: NICOTINE 14 MG/24 HOURS TOPICAL PATCH TD SCH (10:34)
[2018-09-07] MEDS: MUPIROCIN 2% TOPICAL OINTMENT 22 GM TUBE TP SCH ×2 (10:35→21:56)
[2018-09-07] MEDS: NEOMYCIN/POLYMYXIN/BACITRACIN (TRIPLE ANTIBIOTIC) 28 GM OINTMENT TP SCH ×2 (10:35→21:56)
[2018-09-07] MEDS ORDERED: PT OWN MED DRAWER 7, Y5N ONE (14:56)
[2018-09-07] MEDS: THIAMINE HCL 100 MG TABLET (FP) PO SCH (21:56)
[2018-09-08] MEDS: ACETAMINOPHEN 325 MG TABLET (FP) PO PRN ×3 (06:13→21:20)
[2018-09-08] MEDS: CEPHALEXIN MONOHYDRATE 500 MG CAPSULE (UD) PO SCH ×4 (06:13→23:15)
[2018-09-08] MEDS ORDERED: cloNIDine HCL 0.1 MG TABLET PO ONE (06:55)
[2018-09-08] MEDS: PRENATAL VITAMINS W/ FOLIC ACID TABLET (FP) PO SCH (10:23)
[2018-09-08] MEDS: AMMONIUM LACTATE 12% LOTION 225 GM BOTTLE TP PRN (10:23)
[2018-09-08] MEDS: NICOTINE 14 MG/24 HOURS TOPICAL PATCH TD SCH (10:24)
[2018-09-08] MEDS: NEOMYCIN/POLYMYXIN/BACITRACIN (TRIPLE ANTIBIOTIC) 28 GM OINTMENT TP SCH ×2 (10:24→21:58)
[2018-09-08] MEDS: TOLNAFTATE 1% CREAM 15 GM TUBE TP SCH ×2 (10:24→21:58)
[2018-09-08] MEDS: MUPIROCIN 2% TOPICAL OINTMENT 22 GM TUBE TP SCH ×2 (10:24→21:58)
--- NOTE | 2018-09-08 11:50 | PN ---
[facility] Progress Note Note: elevated BP, asymptomatic. Has been getting clonidine PRN. states he may have been on catapress when in the community, but he cannot confirm and does not have a pharmacy. Also states he obtained the medication on the street. Vital Signs (72 hours) 09/06/18 09/06/18 09/06/18 03:30 07:09 10:00 Temperature 97.5 F L Pulse Rate 50 L 48 L Respiratory 18 18 18 Rate Blood Pressure 173/94 H 146/85 09/07/18 09/07/18 09/07/18 03:30 06:00 07:30 Temperature 97.2 F L Pulse Rate 49 L 49 L Respiratory 18 16 18 Rate Blood Pressure 172/116 H 172/86 H 09/08/18 09/08/18 09/08/18 00:30 03:30 06:48 Temperature 97.9 F Pulse Rate 61 Respiratory 18 18 18 Rate Blood Pressure 151/103 H 09/08/18 09:30 Temperature Pulse Rate 62 Respiratory 18 Rate Blood Pressure 143/99 Dxl Hypertention Plan: started Lisinopril 5mg once a day. Will monitor.
[2018-09-08] MEDS: LISINOPRIL 5 MG TABLET (FP) PO SCH (12:58)
--- NOTE | 2018-09-08 14:25 | PN ---
[facility] Progress Note Note: Bilateral wounds healing; Left ankle dry with scab. Right ankle continues with drainage. Dressings changed to once a day.
[2018-09-08] MEDS: THIAMINE HCL 100 MG TABLET (FP) PO SCH (21:19)
[2018-09-09] MEDS: CEPHALEXIN MONOHYDRATE 500 MG CAPSULE (UD) PO SCH ×4 (06:33→23:22)
[2018-09-09] MEDS: ACETAMINOPHEN 325 MG TABLET (FP) PO PRN ×3 (06:34→18:34)
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
[2018-09-09] MEDS: NICOTINE 14 MG/24 HOURS TOPICAL PATCH TD SCH (10:32)
[2018-09-09] MEDS: LISINOPRIL 5 MG TABLET (FP) PO SCH (10:32)
[2018-09-09] MEDS: PRENATAL VITAMINS W/ FOLIC ACID TABLET (FP) PO SCH (10:32)
[2018-09-09] MEDS: TOLNAFTATE 1% CREAM 15 GM TUBE TP SCH ×2 (10:33→21:58)
[2018-09-09] MEDS: MUPIROCIN 2% TOPICAL OINTMENT 22 GM TUBE TP SCH ×2 (10:33→21:58)
[2018-09-09] MEDS: NEOMYCIN/POLYMYXIN/BACITRACIN (TRIPLE ANTIBIOTIC) 28 GM OINTMENT TP SCH ×2 (10:33→21:58)
[2018-09-09] MEDS: THIAMINE HCL 100 MG TABLET (FP) PO SCH (21:32)
[2018-09-09] MEDS ORDERED: SUVOREXANT 10 MG TABLET PO PRN (22:00)
[2018-09-10] MEDS: CEPHALEXIN MONOHYDRATE 500 MG CAPSULE (UD) PO SCH ×4 (06:30→23:50)
[2018-09-10] MEDS: ACETAMINOPHEN 325 MG TABLET (FP) PO PRN ×3 (06:31→19:41)
[2018-09-10] MEDS: LISINOPRIL 5 MG TABLET (FP) PO SCH (10:35)
[2018-09-10] MEDS: TOLNAFTATE 1% CREAM 15 GM TUBE TP SCH ×2 (10:35→22:39)
[2018-09-10] MEDS: NEOMYCIN/POLYMYXIN/BACITRACIN (TRIPLE ANTIBIOTIC) 28 GM OINTMENT TP SCH ×2 (10:35→22:39)
[2018-09-10] MEDS: NICOTINE 14 MG/24 HOURS TOPICAL PATCH TD SCH (10:35)
[2018-09-10] MEDS: MUPIROCIN 2% TOPICAL OINTMENT 22 GM TUBE TP SCH ×2 (10:36→22:38)
[2018-09-10] MEDS: PRENATAL VITAMINS W/ FOLIC ACID TABLET (FP) PO SCH (11:34)
[2018-09-10] MEDS: MELATONIN 5 MG TABLETS PO PRN (21:42)
[2018-09-10] MEDS: THIAMINE HCL 100 MG TABLET (FP) PO SCH (22:39)
[2018-09-10] MEDS: SUVOREXANT 20 MG TABLET PO PRN (23:51)
[2018-09-11] MEDS: ACETAMINOPHEN 325 MG TABLET (FP) PO PRN ×3 (06:17→21:46)
[2018-09-11] MEDS: CEPHALEXIN MONOHYDRATE 500 MG CAPSULE (UD) PO SCH (06:17)
[2018-09-11] MEDS ORDERED: cloNIDine HCL 0.1 MG TABLET PO ONE (06:43)
[2018-09-11] MEDS: PRENATAL VITAMINS W/ FOLIC ACID TABLET (FP) PO SCH (10:22)
[2018-09-11] MEDS: NICOTINE 14 MG/24 HOURS TOPICAL PATCH TD SCH (10:22)
[2018-09-11] MEDS: NEOMYCIN/POLYMYXIN/BACITRACIN (TRIPLE ANTIBIOTIC) 28 GM OINTMENT TP SCH (10:27)
[2018-09-11] MEDS: LISINOPRIL 5 MG TABLET (FP) PO SCH (10:28)
[2018-09-11] MEDS: TOLNAFTATE 1% CREAM 15 GM TUBE TP SCH ×2 (10:28→21:48)
[2018-09-11] MEDS ORDERED: PT OWN MED DRAWER 7, Y5N ONE (10:28)
[2018-09-11] MEDS: MUPIROCIN 2% TOPICAL OINTMENT 22 GM TUBE TP SCH (10:29)
[2018-09-11] MEDS: THIAMINE HCL 100 MG TABLET (FP) PO SCH (21:46)
[2018-09-12] MEDS: LISINOPRIL 5 MG TABLET (FP) PO SCH (10:27)
[2018-09-12] MEDS: PRENATAL VITAMINS W/ FOLIC ACID TABLET (FP) PO SCH ×2 (10:27→10:34)
[2018-09-12] MEDS: ACETAMINOPHEN 325 MG TABLET (FP) PO PRN ×3 (10:27→22:31)
[2018-09-12] MEDS: NICOTINE 14 MG/24 HOURS TOPICAL PATCH TD SCH (10:27)
[2018-09-12] MEDS: TOLNAFTATE 1% CREAM 15 GM TUBE TP SCH ×2 (10:28→21:35)
[2018-09-12] MEDS: AMMONIUM LACTATE 12% LOTION 225 GM BOTTLE TP PRN (10:29)
[2018-09-12] MEDS: SUVOREXANT 20 MG TABLET PO PRN (21:34)
[2018-09-12] MEDS: THIAMINE HCL 100 MG TABLET (FP) PO SCH (21:35)
[2018-09-12] MEDS: MELATONIN 5 MG TABLETS PO PRN (22:32)
[2018-09-13 07:12] VITALS: BP 149/90; PULSE 67; TEMP 98
--- NOTE | 2018-09-13 08:44 | PN ---
[facility] Progress Note Note: DISCHARGE Vital Signs Temperature 98.0 F 09/13/18 07:11 Pulse Rate 67 09/13/18 07:11 Respiratory Rate 18 09/13/18 07:11 Blood Pressure 149/90 09/13/18 07:11 O2 Sat by Pulse Oximetry (%) Laboratory Last Values WBC 4.0 K/mm3 (4.0-10.0) 08/31/18 07:00 RBC 3.23 M/mm3 (4.00-5.60) L 08/31/18 07:00 Hgb 11.2 GM/dL (11.7-16.9) L 08/31/18 07:00 Hct 32.0 % (35.4-49) L D 08/31/18 07:00 MCV 99.0 fl (80-96) H 08/31/18 07:00 MCH 34.5 pg (25.7-33.7) H 08/31/18 07:00 MCHC 34.9 g/dl (32.0-35.9) 08/31/18 07:00 RDW 11.9 % (11.9-15.9) D 08/31/18 07:00 Plt Count 139 K/MM3 (134-434) D 08/31/18 07:00 MPV 9.7 fl (7.5-11.1) 08/31/18 07:00 Sodium 142 mmol/L (136-145) 08/31/18 07:00 Potassium 4.1 mmol/L (3.5-5.1) 08/31/18 07:00 Chloride 104 mmol/L (98-107) 08/31/18 07:00 Carbon Dioxide 34 mmol/L (21-32) H 08/31/18 07:00 Anion Gap 3 MMOL/L (8-16) L 08/31/18 07:00 BUN 20 mg/dL (7-18) H 08/31/18 07:00 Creatinine 1.2 mg/dL (0.55-1.3) 08/31/18 07:00 Creat Clearance w eGFR 59.51 (>60) 08/31/18 07:00 Random Glucose 81 mg/dL (74-106) 08/31/18 07:00 Calcium 8.0 mg/dL (8.5-10.1) L 08/31/18 07:00 Total Bilirubin 0.7 mg/dL (0.2-1) 08/31/18 07:00 AST 38 U/L (15-37) H 08/31/18 07:00 ALT 29 U/L (13-61) 08/31/18 07:00 Alkaline Phosphatase 51 U/L (45-117) 08/31/18 07:00 Total Protein 6.5 g/dl (6.4-8.2) 08/31/18 07:00 Albumin 2.9 g/dl (3.4-5.0) L 08/31/18 07:00 Urine Color Dk yellow 08/29/18 14:30 Urine Appearance Clear 08/29/18 14:30 Urine pH 6.5 (5.0-8.0) D 08/29/18 14:30 Ur Specific [place] 1.025 (1.010-1.035) 08/29/18 14:30 Urine Protein Trace (NEGATIVE) 08/29/18 14:30 Urine Glucose (UA) Trace (NEGATIVE) 08/29/18 14:30 Urine Ketones Negative (NEGATIVE) 08/29/18 14:30 Urine Blood Negative (NEGATIVE) 08/29/18 14:30 Urine Nitrite Negative (NEGATIVE) 08/29/18 14:30 Urine Bilirubin 1+ (<2.0 mg/dL) H 08/29/18 14:30 Urine Urobilinogen 2.0 mg/dL (0.2-1.0) 08/29/18 14:30 Ur Leukocyte Esterase Negative (NEGATIVE) 08/29/18 14:30 RPR Titer Nonreactive (NONREACTIVE) 08/31/18 07:00 Patient left AMA in stable conditions. Patient to follow up with primary care physician and out patient programs. Rx for BP medications transcribed to pharmacy listed on file. 1) Nicotine dependence Current Visit: Yes Status: Acute (2) Opioid dependence Current Visit: Yes Status: Acute (3) Dry skin Current Visit: Yes Status: Chronic (4) Hypertension Current Visit: Yes Status: Chronic Qualifiers: Hypertension type: essential hypertension Qualified Code(s): I10 - Essential (primary) hypertension (5) Weight loss Current Visit: Yes Status: Acute
[2018-09-13] MEDS: ACETAMINOPHEN 325 MG TABLET (FP) PO PRN (09:06)
[2018-09-13] MEDS: NICOTINE 14 MG/24 HOURS TOPICAL PATCH TD SCH (09:10)
[2018-09-13] MEDS: LISINOPRIL 5 MG TABLET (FP) PO SCH (09:10)
[2018-09-13] MEDS: PRENATAL VITAMINS W/ FOLIC ACID TABLET (FP) PO SCH (09:10)
[2018-09-13] MEDS: TOLNAFTATE 1% CREAM 15 GM TUBE TP SCH (09:11)
== END 2018-09-13 09:15 | disposition left against medical advice (07) | DRG 894 ==
LOC: YASAS 10:54 → Y3N 13:47 → Y3W 09-02 14:01
PROVIDERS: ADMIT Surgery; ATTEND Psychiatry & Neurology Psychiatry
PROC: HZ42ZZZ Group Counseling for Substance Abuse Treatment, Cognitive-Behavioral (ICD-10-PCS; principal; 2018-08-29)
DX: F11.20 Opioid dependence, uncomplicated (principal); F19.282 Other psychoactive substance dependence with psychoactive substance-induced sleep disorder; L03.115 Cellulitis of right lower limb; L03.116 Cellulitis of left lower limb; Z68.1 Body mass index [BMI] 19.9 or less, adult; F17.210 Nicotine dependence, cigarettes, uncomplicated; I10 Essential (primary) hypertension; L85.3 Xerosis cutis; F19.24 Other psychoactive substance dependence with psychoactive substance-induced mood disorder; R63.4 Abnormal weight loss; Z86.2 Personal history of diseases of the blood and blood-forming organs and certain disorders involving the immune mechanism
CPT/HCPCS: 36415; 80053; 81003; 85027; 86593; 93005; 93010; J0735